=== PATIENT | male | born 1985 | race Caucasian/White ===

== ENCOUNTER 2017-01-04 20:28 | Emergency (ER) | payer BC ==
[~2017-01-04] VITALS: Ht 177.8 cm; Wt 87.7 kg
[~2017-01-04 20:28] MED LIST: ACET-2321 PO; ARIP5TAB12 PO; BISM262O PO; CIPR-212 PO; HYDR-3989 PO; HYDR-4246 PO; MELO7.5T12 PO; METR500T PO; PANT40TA27 PO; SERT25TA5 PO; SUCR1TAB PO
--- OUTSIDE RECORDS SUMMARY | 2017-01-04 20:33 | XMS REPORT ---
Author Author Rashi Harmon [facility] Address [address] [id number] Care Team Providers Care Gravel Machine Operator Name Role Phone Rashi Harmon Unavailable [phone] PROBLEMS Type Condition ICD9-CM Code [id number] Code Onset Dates Condition Status SNOMED Code Problem Ulcerative colitis with complication, unspecified location K51.919 Active 68846694 Problem Bloody diarrhea R19.7 Active [id number] Assessment Ulcerative colitis with complication, unspecified location K51.919 Sep, Active [id number] ALLERGIES Unknown Allergies SOCIAL HISTORY No smoking Hx information available PLAN OF CARE VITAL SIGNS Height 69.5 in 2016-10-11 Weight 213.6 lbs 2016-10-11 Temperature 98.0 degrees Fahrenheit 2016-10-11 Heart Rate 73 /min 2016-10-11 BMI 31.09 kg/m2 2016-10-11 Blood pressure systolic 126 mm Hg 2016-10-11 Blood pressure diastolic 72 mm Hg 2016-10-11 MEDICATIONS Medication Instructions Dosage Frequency Start Date End Date Duration Status Fish Oil 1000 MG Orally Once a day 1 capsule 24h Active Remicade 100 MG Active RESULTS No Results PROCEDURES Procedure Date Ordered Related Diagnosis Body Site Office Visit, Est Pt., Level 1 Oct 11, 2016 INJECTION INFLIXIMAB 10 MG Oct 11, 2016 CHEMO, IV INFUSION, ADDL HR Oct 11, 2016 CHEMO, IV INFUSION, 1 HR Oct 11, 2016 Infusion Normal Saline Solution 250 cc Oct 11, 2016 IMMUNIZATIONS No Known Immunizations
--- OUTSIDE RECORDS SUMMARY | 2017-01-04 20:33 | XMS REPORT ---
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
--- OUTSIDE RECORDS SUMMARY | 2017-01-04 20:33 | XMS REPORT ---
Author Author Amy Springer Organization [employer] Address Unknown Phone Unavailable Care Team Providers Care Transliterator Name Role Phone Amy Springer CP Unavailable Allergies No Known Allergies Problems Problem Type Condition Code Onset Dates Condition Status Problem Umbilical hernia without mention of obstruction or gangrene 553.1 Active Problem Hypercholesterolemia 272.2 Active Problem Other [facility] (current) drug therapy Z79.899 Active Assessment Epigastric pain R10.13 Active Assessment Diarrhea, unspecified R19.7 Active Problem Bipolar disorder, current episode depressed, severe, without psychotic features F31.4 Active Assessment Other intermission coordinator (current) drug therapy Z79.899 Active Medications Medication Code System Code Instructions Start Date End Date Status Dosage Lovastatin [facility] [address]-70 20 MG Orally Once a day January 06, 2015 2 tablet with a meal [place] Carbonate [facility] [address]-90 300 MG PO TID Aug 13, 2014 2 caps Procedures Procedure Coding System Code Date LITHIUM CPT-4 38371 Jul 16, 2015 TSH CPT-4 96350 Jul 16, 2015 SED RATE CPT-4 82200 Jul 16, 2015 LIPID PANEL CPT-4 12418 Jul 16, 2015 COMPREHENSIVE METABOLIC PANEL CPT-4 51160 Jul 16, 2015 HELICOBACTER AB IGG CPT-4 38110 Jul 16, 2015 Results No Known Results Summary Purpose [employer]Clinical[employer] Submission
--- OUTSIDE RECORDS SUMMARY | 2017-01-04 20:33 | XMS REPORT ---
Author Author Vidhya Villatoro [facility] [employer] Address Unknown Phone Unavailable Care Team Providers Care Saw Straightener Name Role Phone Vidhya Villatoro CP Unavailable Allergies No Known Allergies Problems Problem Type Condition ICD-9 Code Onset Dates Condition Status Problem Umbilical hernia without mention of obstruction or gangrene 553.1 Active Problem Bipolar I disorder, most recent episode (or current) depressed, severe , without mention of psychotic behavior 296.53 Active Medications No Known Medications Vital Signs Date/Time: Jul 09, 2014 Height 69.75 inches Weight 202.25 lbs Temperature 97.9 F Blood Pressure Diastolic 80 mm Hg Blood Pressure Systolic 132 mm Hg Cardiac Monitoring Heart Rate 78 Beats per Minute BMI 29.23 Index Respiratory Rate 16 per Minute Results No Known Results Summary Purpose [employer]ClinicalWorks Submission
--- OUTSIDE RECORDS SUMMARY | 2017-01-04 20:33 | XMS REPORT ---
Author Author Sarina Rothman [facility] [employer] Address Unknown Phone Unavailable Care Team Providers Care Electro Tech Name Role Phone Sarina Rothman CP Unavailable Allergies No Known Allergies Problems Problem Type Condition Code Onset Dates Condition Status Problem Other [facility] (current) drug therapy Z79.899 Active Problem Umbilical hernia without mention of obstruction or gangrene 553.1 Active Problem Gastro-esophageal reflux disease without esophagitis K21.9 Active Problem Hypercholesterolemia 272.2 Active Problem Bipolar disorder, current episode depressed, severe, without psychotic features F31.4 Active Medications No Known Medications Results No Known Results Summary Purpose [employer]Clinical[employer] Submission
--- OUTSIDE RECORDS SUMMARY | 2017-01-04 20:33 | XMS REPORT ---
Author Author Vidhya Villatoro [facility] [employer] Address Unknown Phone Unavailable Care Team Providers Care Credit Review Officer Name Role Phone Vidhya Villatoro CP Unavailable Allergies No Known Allergies Problems Problem Type Condition ICD-9 Code Onset Dates Condition Status Problem Umbilical hernia without mention of obstruction or gangrene 553.1 Active Assessment Bipolar I disorder, most recent episode (or current) depressed, severe, without mention of psychotic behavior 296.53 Active Problem Bipolar I disorder, most recent episode (or current) depressed, severe , without mention of psychotic behavior 296.53 Active Medications Medication Code System Code Instructions Start Date End Date Status Dosage [place] Carbonate [facility] [address]-35 300 MG Orally 2 capsules in the morning , and 2 capsules in the evening January 22, 2014 Active as directed Trazodone HCl [facility] [address]-39 100 MG Orally Once a day Jul 09, 2014 Active 1 tablet at bedtime [place] Carbonate [facility] [address]-21 600 MG Orally Twice every day Aug 13, 2014 Active as directed Trihexyphenidyl HCl [facility] [address]-94 5 MG Orally one time a day at bedtime Active 1/2 tablet with meals Procedures Procedure Coding System Code Date OFFICE VISIT, EST-MOD. COMPLEXITY (25 MIN) CPT-4 50145 Aug 13, 2014 Vital Signs Date/Time: Aug 13, 2014 Height 69.75 inches Weight 210.75 lbs Temperature 98.1 F Blood Pressure Diastolic 76 mm Hg Blood Pressure Systolic 126 mm Hg Cardiac Monitoring Heart Rate 84 Beats per Minute BMI 30.45 Index Respiratory Rate 16 per Minute Results No Known Results Summary Purpose [employer]ClinicalWorks Submission
--- OUTSIDE RECORDS SUMMARY | 2017-01-04 20:33 | XMS REPORT ---
Author Jessi Vail Organization [employer] Address Unknown Phone Unavailable Care Team Providers Care Plate Glass Installer Name Role Phone Jessi Eller Unavailable Allergies No Known Allergies Problems Problem Type Condition Code Onset Dates Condition Status Problem Bloody diarrhea R19.7 Active Problem Ulcerative colitis with complication, unspecified location K51.919 Active Medications No Known Medications Results No Known Results Summary Purpose [employer] Submission
--- OUTSIDE RECORDS SUMMARY | 2017-01-04 20:33 | XMS REPORT ---
Author Rashi Ko Organization [employer] Address Unknown Phone Unavailable Care Team Providers Care Auto Parts Manager Name Role Phone Rashi Harmon CP Unavailable Allergies No Known Allergies Problems Problem Type Condition Code Onset Dates Condition Status Problem Bloody diarrhea R19.7 Active Problem Ulcerative colitis with complication, unspecified location K51.919 Active Medications No Known Medications Results No Known Results Summary Purpose [employer]ClinicalWorks Submission
--- OUTSIDE RECORDS SUMMARY | 2017-01-04 20:33 | XMS REPORT ---
Author Author Sarina Rothman [facility] [employer] Address Unknown Phone Unavailable Care Team Providers Care Market Asset Protection Manager Name Role Phone Sarina Rothman CP Unavailable Allergies No Known Allergies Problems Problem Type Condition Code Onset Dates Condition Status Problem Other nursing home (current) drug therapy Z79.899 Active Problem Umbilical hernia without mention of obstruction or gangrene 553.1 Active Problem Gastro-esophageal reflux disease without esophagitis K21.9 Active Problem Hypercholesterolemia 272.2 Active Problem Bipolar disorder, current episode depressed, severe, without psychotic features F31.4 Active Medications No Known Medications Results No Known Results Summary Purpose [employer]ClinicalWorks Submission
--- OUTSIDE RECORDS SUMMARY | 2017-01-04 20:33 | XMS REPORT ---
Author Author Aldo Pretty Organization [employer] Address Unknown Phone Unavailable Care Team Providers Care Hogshead Weigher Name Role Phone Aldo Pretty CP Unavailable Allergies, Adverse Reactions, Alerts Substance Reaction Event Type N.K.D.A. 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 Problem Umbilical hernia without mention of obstruction or gangrene 553.1 Active Problem Gastro-esophageal reflux disease without esophagitis K21.9 Active Assessment Ulcerative colitis, unspecified, without complications K51.90 Active Assessment Generalized abdominal pain R10.84 Active Problem Hypercholesterolemia 272.2 Active Problem Bipolar disorder, current episode depressed, severe, without psychotic features F31.4 Active Medications Medication Code System Code Instructions Start Date End Date Status Dosage Budesonide ER [facility] [address]-85 3 MG Orally Once a day 1 [place] [facility] [address]-67 1000 MG Rectal Once a day 1 suppository at bedtime Hydrocodone-Acetaminophen [facility] [address]-92 5-325 MG Orally every 6 hrs Jul 01, 2016 1-2 tablet as needed for pain Procedures Procedure Coding System Code Date OFFICE VISIT, EST-LOW COMPLEXITY (15 MIN.) CPT-4 59754 Jun 01, 2016 Vital Signs Date/Time: Jun 01, 2016 Temperature 98.4 F Height 69.75 in Weight 212 lbs Blood Pressure Diastolic 60 mm Hg Blood Pressure Systolic 122 mm Hg Cardiac Monitoring Heart Rate 82 /min BMI 30.63 Index Oximetry 95 % Results No Known Results Summary Purpose eClinicalWorks Submission
--- OUTSIDE RECORDS SUMMARY | 2017-01-04 20:33 | XMS REPORT ---
Author Author Sarina Rothman [facility] eClinical[employer] Address Unknown Phone Unavailable Care Team Providers Care Dinkey Engine Mechanic Name Role Phone Sarina Rothman CP Unavailable Allergies No Known Allergies Problems Problem Type Condition Code Onset Dates Condition Status Problem Other [facility] (current) drug therapy Z79.899 Active Problem Umbilical hernia without mention of obstruction or gangrene 553.1 Active Problem Gastro-esophageal reflux disease without esophagitis K21.9 Active Assessment Ulcerative colitis, unspecified with unspecified complications K51.919 Active Problem Hypercholesterolemia 272.2 Active Problem Bipolar disorder, current episode depressed, severe, without psychotic features F31.4 Active Medications Medication Code System Code Instructions Start Date End Date Status Dosage Sertraline HCl [facility] [address]-04 25 MG Orally Once a day December 30, 2015 1 tablet Protonix [facility] [address]-84 40 MG Orally Once a day Jul 16, 2015 1 tablet Abilify [facility] [address]-81 5 MG Orally Once a day March 03, 2016 1 tablet Procedures Procedure Coding System Code Date HEPATITIS PANEL CPT-4 95191 May 24, 2016 QUAUNTIFERON GOLD TB TEST CPT-4 18384 May 24, 2016 Results No Known Results Summary Purpose eClinicalWorks Submission
--- OUTSIDE RECORDS SUMMARY | 2017-01-04 20:33 | XMS REPORT ---
Author Author Sarina Rothman [facility] eClinical[employer] Address Unknown Phone Unavailable Care Team Providers Care Building Equipment Inspector Name Role Phone Sarina Rothman CP Unavailable Allergies No Known Allergies Problems Problem Type Condition Code Onset Dates Condition Status Problem Other snf (current) drug therapy Z79.899 Active Problem Umbilical hernia without mention of obstruction or gangrene 553.1 Active Problem Gastro-esophageal reflux disease without esophagitis K21.9 Active Problem Hypercholesterolemia 272.2 Active Problem Bipolar disorder, current episode depressed, severe, without psychotic features F31.4 Active Medications No Known Medications Results No Known Results Summary Purpose eClinicalWorks Submission
--- OUTSIDE RECORDS SUMMARY | 2017-01-04 20:33 | XMS REPORT ---
Author Author Vidhya Villatoro [facility] eClinical[employer] Address Unknown Phone Unavailable Care Team Providers Care Security Associate Name Role Phone Vidhya Villatoro CP Unavailable [...] Instructions Start Date End Date Status Dosage Trazodone HCl [facility] [address]-35 100 MG Orally Once a day Jul 09, 2014 Active 1 tablet at bedtime [place] Carbonate [facility] [address]-73 300 MG Orally 2 capsules in the morning , and 2 capsules in the evening January 22, 2014 Active as directed Trihexyphenidyl HCl [facility] [address]-37 5 MG Orally one times a day Jul 09, 2014 Active 1 tablet with meals Procedures Procedure Coding System Code Date -ELECTROCARDIOGRAM, COMPLETE CPT-4 24388 Jul 09, 2014 OFFICE VISIT, EST-MOD. COMPLEXITY (25 MIN) CPT-4 24206 Jul 09, 2014 Vital Signs Date/Time: Jul 09, 2014 Height 69.75 inches Weight 202.25 lbs Temperature 97.9 F Blood Pressure Diastolic 80 mm Hg Blood Pressure Systolic 132 mm Hg Cardiac Monitoring Heart Rate 78 Beats per Minute BMI 29.23 Index Respiratory Rate 16 per Minute Results No Known Results Summary Purpose eClinicalWorks Submission
--- OUTSIDE RECORDS SUMMARY | 2017-01-04 20:34 | XMS REPORT ---
Author Author Aldo Pretty Organization [employer] Address Unknown Phone Unavailable Care Team Providers Care Document Design Specialist Name Role Phone Aldo Pretty CP Unavailable Allergies, Adverse Reactions, Alerts Substance Reaction Event Type N.K.D.A. Info Not Available Non Drug Allergy Problems Problem Type Condition Code Onset Dates Condition Status Assessment Gastro-esophageal reflux disease without esophagitis K21.9 Active Problem Other alf (current) drug therapy Z79.899 Active Problem Umbilical hernia without mention of obstruction or gangrene 553.1 Active Problem Gastro-esophageal reflux disease without esophagitis K21.9 Active Assessment Other muscle spasm M62.838 Active Assessment Pain in thoracic spine M54.6 Active Problem Hypercholesterolemia 272.2 Active Problem Bipolar disorder, current episode depressed, severe, without psychotic features F31.4 Active Medications Medication Code System Code Instructions Start Date End Date Status Dosage Protonix [facility] [address]-54 40 MG Orally Once a day Jul 16, 2015 1 tablet Mobic [facility] [address]-79 7.5 MG Orally every 12 hours Apr 12, 2016 1 tablet Sertraline HCl [facility] [address]-85 25 MG Orally Once a day December 30, 2015 1 tablet Sucralfate [facility] [address]-90 1 GM Orally 30 min before meals and bedtime January 12, 2016 May 11, 2016 dissolve 1 tablet in small amount of water and drink Abilify [facility] [address]-26 5 MG Orally Once a day March 03, 2016 1 tablet Procedures Procedure Coding System Code Date OFFICE VISIT, EST-LOW COMPLEXITY (15 MIN.) CPT-4 37944 Apr 12, 2016 Vital Signs Date/Time: Apr 12, 2016 Temperature 98.1 F Height 69.75 in Weight 221.0 lbs Blood Pressure Diastolic 80 mm Hg Blood Pressure Systolic 130 mm Hg Cardiac Monitoring Heart Rate 70 /min BMI 31.93 Index Oximetry 98 % Respiratory Rate 16 /min Results No Known Results Summary Purpose eClinicalWorks Submission
--- OUTSIDE RECORDS SUMMARY | 2017-01-04 20:34 | XMS REPORT | Continuity of Care Document ---
Author Author [facility] Organization [facility] Address Unknown Phone Unavailable Support Name Relationship Address Phone TANA LICEA APRN Caregiver [address] [place] [address] Unavailable CHAUNCEY MIDDLETON MD Caregiver [address] [place] [address] [place] [address] Unavailable BANDAR HUNTLEY Next Of Kin [address] [address] Insurance Providers Guarantor Siddharth Valle Address [address] [address] Email DENIED/NO EMAIL PER PT/NO TO PORTAL Payer [facility] Policy Number [id number] Subscriber's Name Siddharth Valle Relationship 18 Self Group Number [id number] Chief Complaint and Reason for Visit Chief Complaint Abdominal Pain Reason for Visit Inflammatory bowel disease Problems Past Problems Medical Problem Onset Date Colitis Unknown Inflammatory bowel disease Unknown Medications Current Home Medications Medication Dose Units Route Directions Days Qty Instructions Start Date Acetaminophen (Tylenol) 325 Mg Tablet 325-650 Mg Oral Every 4 Hours as needed for Pain 02/05/16 Aripiprazole 5 Mg Tablet 5 Mg Oral Daily 04/26/16 Bismuth Subsalicylate (Kaopectate) 262 Mg/15 Ml Oral.susp 30 Ml Oral As Needed as needed for Prn Orders 04/26/16 Ciprofloxacin Hcl (Cipro) 500 Mg Tablet 500 Mg Oral Three Times A Day 30 Tablet 04/19/16 Hydrocodone/Acetaminophen ([place] 5-325 Tablet) 5-325 Tablet 1-2 Tab Oral Every 6 Hours for Pain 20 Tablet 04/19/16 Hydrocodone/Acetaminophen (Hydrocodon-Acetaminophen 5-325) 5-325 Tablet 1-2 Tab Oral Every 6 Hours as needed for Pain 20 Tablet 04/26/16 Meloxicam (Mobic) 7.5 Mg Tablet 7.5 Mg Oral Daily 04/19/16 Metronidazole (Flagyl) 500 Mg Tablet 500 Mg Oral Q6h/0300,0900,1500,2100 40 Tablet Take 1 tablet, by mouth, every 6 hours. 04/19/16 Pantoprazole Sodium 40 Mg Tablet.dr 40 Mg Oral Before Breakfast Take 1 tablet, by mouth, daily before breakfast. 04/26/16 Sertraline Hcl (Sertraline) 25 Mg Tablet 25 Mg Oral Daily Sucralfate 1 Gm Tablet 1 G Oral Three Times A Day 02/05/16 Social History Social History Problem Response Recorded Date/Time Onset Date Status Hx Substance Use N MARIJUANA: QUIT 201204/26/2016 12:19pm Not Applicable Not Applicable Hx Alcohol Use No 04/26/2016 12:19pm Not Applicable Not Applicable Has the pt used tobacco in the last 12 months No 02/06/2016 7:20am Not Applicable Not Applicable Query Response Start Date Stop Date Smoking Status Unknown if ever smoked Hospital Discharge Instructions No hospital discharge instructions. Plan of Care Discharge Date 04/26/16 1:40pm Disposition 01 DISCHARGED HOME, SELF-CARE Condition at Discharge Stable Instructions/Education Provided Inflammatory Bowel Disease (IBD) (Alternative Therapy) Forms Provided Return to Work/School Permit Prescriptions See Medication Section Referrals JOSE A PRETTY DO Address: [address] [place] [address] [phone] Note: Call today for an appointment later in the week with Dr. Pretty Care Plan and Goals Physician Care Plan Problem: Inflammatory bowel disease Goal: Follow up with primary care provider Instructions: Take medications and follow care plan as discussed/written Functional Status No functional status results. Allergies, Adverse Reactions, Alerts No known allergies. Immunizations Query Response on File Recorded Date/Time Hx Influenza Vaccination Y may 2015 02/06/16 7:20am Hx Pneumococcal Vaccination No 02/06/16 7:20am Hx Tetanus, Diptheria, Pertussis Y 200802/26/12 8:29am Hx Influenza Vaccination Y may 2015 02/06/16 7:20am Hx Tetanus, Diptheria, Pertussis Y 200802/26/12 8:29am Vital Signs Acute Vital Signs Vital Response Date/Time Temperature (Fahrenheit) 98.0 deg F (96.8 - 99.1) 04/26/2016 1:48pm Temperature (Calculated Celsius) 36.36769 degrees C (36.0 - 37.3) 04/26/2016 1:48pm Temperature Source Temporal 02/06/2016 9:22am Pulse Rate (adult) 57 bpm (60 - 100) 04/26/2016 1:48pm Respiratory Rate 20 breaths/min (10 - 20) 04/26/2016 1:48pm O2 Sat by Pulse Oximetry 95 % (90 - 100) 04/26/2016 1:48pm Oxygen Delivery Method Room Air 02/06/2016 10:15am Oxygen Flow Rate 2.00 L/min 02/06/2016 9:30am Blood Pressure 113/59 mm Hg 04/26/2016 1:48pm Blood Pressure Source Automatic Cuff 02/06/2016 10:15am Height (Feet) 5 feet 04/26/2016 10:40am Height (Inches) 10.00 inches 04/26/2016 10:40am Weight (Kilograms) 99.500 kg 04/26/2016 10:40am Body Mass Index (BMI) 31.0 04/26/2016 10:40am Results Laboratory Results Test Name Result Units Flags Reference Collection Date/Time Result Date/ Time Comments Stool Campylobacter PCR NEGATIVE NEGATIVE 04/19/2016 1:57am 2015 4:34am Stool C. difficile Toxin (PCR) NEGATIVE NEGATIVE 04/19/2016 1:57am 4:34am Stool Plesiomonas shigelloides PCR NEGATIVE NEGATIVE 04/19/2016 1: 57am 04/19/2016 4:34am Stool Salmonella PCR NEGATIVE NEGATIVE 04/19/2016 1:57am 04/19/2016 4 :34am Stool Vibrio (PCR) NEGATIVE NEGATIVE 04/19/2016 1:57am 04/19/2016 4: 34am Stool Vibrio cholera (PCR) NEGATIVE NEGATIVE 04/19/2016 1:57am 2015 4:34am Stool Yersinia enterocolitica (PCR) NEGATIVE NEGATIVE 04/19/2016 1: 57am 04/19/2016 4:34am Stool Enteroaggregative E. coli PCR NEGATIVE NEGATIVE 04/19/2016 1: 57am 04/19/2016 4:34am Stool Enteropathogenic E. coli (PCR NEGATIVE NEGATIVE 04/19/2016 1: 57am 04/19/2016 4:34am Stool Enterotoxigenic Ecoli PCR NEGATIVE NEGATIVE 04/19/2016 1:57am 04/19/2016 4:34am Stool E. coli Shiga Toxins NEGATIVE NEGATIVE 04/19/2016 1:57am 2015 4:34am Stool E coli O157 PCR N/A NA/NEG 04/19/2016 1:57am 04/19/2016 4:34am Stool Shigella/EIEC (PCR) NEGATIVE NEGATIVE 04/19/2016 1:57am 2015 4:34am Stool Cryptosporidium PCR NEGATIVE NEGATIVE 04/19/2016 1:57am 2015 4:34am Stool Cyclospora species Detection NEGATIVE NEGATIVE 04/19/2016 1: 57am 04/19/2016 4:34am Stool Entamoeba (PCR) NEGATIVE NEGATIVE 04/19/2016 1:57am 04/19/2016 4:34am Stool Giardia Lamblia PCR NEGATIVE NEGATIVE 04/19/2016 1:57am 2015 4:34am Stool Adenovirus (PCR) NEGATIVE NEGATIVE 04/19/2016 1:57am 2015 4:34am Stool Astrovirus (PCR) NEGATIVE NEGATIVE 04/19/2016 1:57am 2015 4:34am Stool Norovirus GI/GII PCR NEGATIVE NEGATIVE 04/19/2016 1:57am 2015 4:34am Stool Rotavirus A PCR NEGATIVE NEGATIVE 04/19/2016 1:57am 04/19/2016 4:34am Stool Sapovirus (PCR) NEGATIVE NEGATIVE 04/19/2016 1:57am 04/19/2016 4:34am White Blood Count 8.5 T/MM3 4.5-11.0 04/26/2016 11:30am 04/26/2016 11: 46am Red Blood Count 4.51 M/MM3 4.50-5.90 04/26/2016 11:30am 04/26/2016 11: 46am Hemoglobin 13.6 GM/DL 13.5-17.5 04/26/2016 11:30am 04/26/2016 11:46am Hematocrit 40.5 % L 41-53 04/26/2016 11:30am 04/26/2016 11:46am Mean Corpuscular Volume 89.8 UM3 80-100 04/26/2016 11:30am 04/26/2016 11:46am Mean Corpuscular Hemoglobin 30.2 UUG 26-34 04/26/2016 11:30am 2015 11:46am Mean Corpuscular Hemoglobin Concent 33.6 GM/DL 31-37 04/26/2016 11:3004/26/2016 11:46am RDW Standard Deviation 41.1 FL 36.9-50.2 04/26/2016 11:04/26/2016 11:46am Platelet Count 292 T/MM3 130-400 04/26/2016 11:3004/26/2016 11:46am Mean Platelet Volume 8.7 UM3 L 9.4-12.4 04/26/2016 11:3004/26/2016 11 :46am Neutrophils (%) (Auto) 44.3 % 33-66 04/26/2016 11:04/26/2016 11: 46am Lymphocytes (%) (Auto) 23.0 % 23-45 04/26/2016 11:04/26/2016 11: 46am Monocytes (%) (Auto) 10.0 % H 0-9.0 04/26/2016 11:3004/26/2016 11: 46am Eosinophils (%) (Auto) 21.1 % H 0-4 04/26/2016 11:04/26/2016 11: 46am Basophils (%) (Auto) 0.7 % 0-2 04/26/2016 11:04/26/2016 11:46am Immature Granulocyte % (Auto) 0.9 % H 0.0-0.5 04/26/2016 11:2015 11:46am Absolute Neutrophils (auto) 3.8 T/MM3 1.8-7.7 04/26/2016 11:2015 11:46am Absolute Lymphocytes (auto) 2.0 T/MM3 1-4.8 04/26/2016 11:302015 11:46am Absolute Monocytes (auto) 0.9 T/MM3 H 0-0.8 04/26/2016 11:2015 11:46am Absolute Eosinophils (auto) 1.8 T/MM3 H 0-0.5 04/26/2016 11:302015 11:46am Absolute Basophils (auto) 0.1 T/MM3 0-0.2 04/26/2016 11:302015 11:46am Absolute Immature Granulocyte (auto 0.08 T/MM3 H 0.00-0.03 04/26/2016 11: 3004/26/2016 11:46am Icterus Index < 2 0-7 04/26/2016 11:3004/26/2016 12:06pm Chemistry Specimen Hemolysis < 15 0-25 04/26/2016 11:3004/26/2016 12:06pm 0-25: Specimen Exhibited No Hemolysis. Turbidity < 20 0-20 04/26/2016 11:30am 04/26/2016 12:06pm Sodium Level 143 MEQ/L 134-144 04/26/2016 11:3004/26/2016 12:06pm Potassium Level 3.9 MEQ/L 3.6-5 04/26/2016 11:3004/26/2016 12:06pm Chloride Level 109 MEQ/L H 98-107 04/26/2016 11:30am 04/26/2016 12:06pm Carbon Dioxide Level 23 MEQ/L 22-30 04/26/2016 11:30am 04/26/2016 12: 06pm Anion Gap 11 MEQ/L 5-15 04/26/2016 11:3004/26/2016 12:06pm Blood Urea Nitrogen 11.0 MG/DL 9-20 04/26/2016 11:30am 04/26/2016 12: 06pm Creatinine 0.9 MG/DL 0.8-1.5 04/26/2016 11:3004/26/2016 12:06pm BUN/Creatinine Ratio 12 RATIO 6-26 04/26/2016 11:30am 04/26/2016 12: 06pm Glomerular Filtration Rate Calc 98 04/26/2016 11:3004/26/2016 12 :06pm Glucose Level 110 MG/DL 75-110 04/26/2016 11:3004/26/2016 12:06pm Calculated Osmolality 275 MOSM/KG 261-280 04/26/2016 11:302015 12:06pm Calcium Level 9.0 MG/DL 8.4-10.2 04/26/2016 11:3004/26/2016 12:06pm Total Bilirubin 0.40 MG/DL 0.20-1.30 04/26/2016 11:30am 04/26/2016 12: 06pm Alkaline Phosphatase 81 U/L 38-126 04/26/2016 11:30am 04/26/2016 12: 06pm Total Protein 7.4 G/DL 6.3-8.2 04/26/2016 11:30am 04/26/2016 12:06pm Albumin 4.0 G/DL 3.5-5.0 04/26/2016 11:3004/26/2016 12:06pm Globulin 3.4 G/DL 2.4-3.6 04/26/2016 11:30am 04/26/2016 12:06pm Albumin/Globulin Ratio 1.2 RATIO 1.1-2.2 04/26/2016 11:30am 04/26/2016 12:06pm Aspartate Amino Transf (AST/SGOT) 44 U/L 17-59 04/26/2016 11:30am 04/26 12:06pm Alanine Aminotransferase (ALT/SGPT) 49 U/L 21-72 04/26/2016 11:30am 12:06pm C-Reactive Protein < 5.0 MG/L 0-9 04/26/2016 11:30am 04/26/2016 12: 06pm Lipase 96 U/L 23-300 04/26/2016 11:30am 04/26/2016 12:06pm Urine Collection Type VOIDED-NOT CC-MIDSTR 04/26/2016 11:50am 04/26 12:02pm Urine Color YELLOW YELLOW 04/26/2016 11:50am 04/26/2016 12:02pm Urine Turbidity CLEAR CLEAR 04/26/2016 11:50am 04/26/2016 12:02pm Urine Specific Ackley >=1.030 H 1.015-1.025 04/26/2016 11:50am 2015 12:02pm Urine pH 6.0 5.0-8.0 04/26/2016 11:50am 04/26/2016 12:02pm Urine Leukocyte Esterase NEGATIVE NEGATIVE 04/26/2016 11:50am 2015 12:02pm Urine Nitrite NEGATIVE NEGATIVE 04/26/2016 11:50am 04/26/2016 12: 02pm Urine Protein NEGATIVE NEGATIVE 04/26/2016 11:50am 04/26/2016 12: 02pm Urine Glucose (UA) NEGATIVE NEGATIVE 04/26/2016 11:50am 04/26/2016 12 :02pm Urine Ketones TRACE A NEGATIVE 04/26/2016 11:50am 04/26/2016 12:02pm Urine Urobilinogen 0.2 EU/DL NORMAL 04/26/2016 11:50am 04/26/2016 12: 02pm Urine Bilirubin NEGATIVE NEGATIVE 04/26/2016 11:50am 04/26/2016 12: 02pm Urine Blood NEGATIVE NEGATIVE 04/26/2016 11:50am 04/26/2016 12:02pm Urinalysis Comment MICROSCOPIC NOT IND. 04/26/2016 11:50am 2015 12:02pm Procedures Procedure Status Date Provider(s) EGD BIOPSY SINGLE/MULTIPLE Completed 02/06/16 LESTER BUTT MD COLONOSCOPY AND BIOPSY Completed 02/06/16 LESTER BUTT MD CULTURE SCREEN ONLY Completed 02/06/16 PROPOFOL INJ 500 MG/50ML Completed 02/06/16 227851"RINGERS LACTATE INFUSION, UP TO 1000 CC" Completed 02/06/16 Encounters Encounter Location Arrival/Admit Date Discharge/Depart Date Attending Provider Departed Emergency Room [facility] 04/26/16 10:36am 04/26/16 1: 40pm CHAUNCEY MIDDLETON MD Departed Emergency Room [facility] 04/18/16 11:38pm 04/19/16 4: 01am RHIANNON HARMON MD Departed [facility] 02/06/16 6:59am 02/06/16 10 :20am LESTER BUTT MD Recent Diagnosis
--- OUTSIDE RECORDS SUMMARY | 2017-01-04 20:34 | XMS REPORT ---
Author Rashi Ko Organization [employer] Address Unknown Phone Unavailable Care Team Providers Care Weather Strip Installer Name Role Phone Rashi Harmon CP Unavailable Allergies No Known Allergies Problems Problem Type Condition Code Onset Dates Condition Status Problem Bloody diarrhea R19.7 Active Assessment Ulcerative colitis with complication, unspecified location K51.919 Active Problem Ulcerative colitis with complication, unspecified location K51.919 Active Medications No Known Medications Procedures Procedure Coding System Code Date ACUTE HEPATITIS PANEL CPT-4 09025 May 18, 2016 TB TEST, CELL IMMUN MEASURE CPT-4 61927 May 18, 2016 Results No Known Results Summary Purpose [employer] Submission
--- OUTSIDE RECORDS SUMMARY | 2017-01-04 20:34 | XMS REPORT ---
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 Problem Umbilical hernia without mention of obstruction or gangrene 553.1 Active Problem Gastro-esophageal reflux disease without esophagitis K21.9 Active Assessment Generalized abdominal pain R10.84 Active Assessment Diarrhea, unspecified R19.7 Active Problem Hypercholesterolemia 272.2 Active Problem Bipolar disorder, current episode depressed, severe, without psychotic features F31.4 Active Medications Medication Code System Code Instructions Start Date End Date Status Dosage Sertraline HCl [facility] [address]-91 25 MG Orally Once a day December 30, 2015 1 tablet Protonix [facility] [address]-65 40 MG Orally Once a day Jul 16, 2015 1 tablet Hydrocodone-Acetaminophen [facility] [address]-90 5-325 MG Orally every 6 hrs May 11, 2016 1-2 tablet as needed for pain Abilify [facility] [address]-59 5 MG Orally Once a day March 03, 2016 1 tablet Sucralfate [facility] [address]-85 1 GM Orally 30 min before meals and bedtime January 12, 2016 May 11, 2016 dissolve 1 tablet in small amount of water and drink Procedures Procedure Coding System Code Date C DIFFICILE TOXIN CPT-4 51223 Apr 28, 2016 Results Name Result Date Reference Range Unit Abnormality Flag C Difficile Summary Purpose [employer] Submission
--- OUTSIDE RECORDS SUMMARY | 2017-01-04 20:34 | XMS REPORT ---
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
--- OUTSIDE RECORDS SUMMARY | 2017-01-04 20:34 | XMS REPORT ---
Author Jessi V[facility] [employer] Address Unknown Phone Unavailable Care Team Providers Care Irrigator Name Role Phone Jessi Eller Unavailable Allergies, Adverse Reactions, Alerts Substance Reaction Event Type N.K.D.A. Info Not Available Non Drug Allergy Problems Problem Type Condition Code Onset Dates Condition Status Problem Bloody diarrhea R19.7 Active Assessment Colitis K52.9 Active Problem Ulcerative colitis with complication, unspecified location K51.919 Active Medications Medication Code System Code Instructions Start Date End Date Status Dosage Uceris [facility] [address]-13 9 MG Orally not defined Mesalamine [facility] [address]-19 1000 MG Rectal Once a day 1 suppository at bedtime Procedures Procedure Coding System Code Date Office Visit, Est Pt., Level 4 CPT-4 12649 Jun 07, 2016 Vital Signs Date/Time: Jun 07, 2016 Blood Pressure Systolic 122 mm Hg Weight 210 lbs Height 69.5 in BMI 30.56 Index Respiratory Rate 18 /min Cardiac Monitoring Heart Rate 72 /min Blood Pressure Diastolic 78 mm Hg Results No Known Results Summary Purpose [employer] Submission
--- OUTSIDE RECORDS SUMMARY | 2017-01-04 20:34 | XMS REPORT ---
Author Rashi Ko [facility] [employer] Address Unknown Phone Unavailable Care Team Providers Care Nib Adjuster Name Role Phone Rashi Harmon CP Unavailable Allergies No Known Allergies Problems No Known Problems Medications No Known Medications Results No Known Results Summary Purpose [employer] Submission
--- OUTSIDE RECORDS SUMMARY | 2017-01-04 20:34 | XMS REPORT ---
Author Author Rashi Harmon [facility] Address [address] [id number] Care Team Providers Care Taker Down Name Role Phone Rashi Harmon Unavailable [phone] PROBLEMS Type Condition ICD9-CM Code UAB96-GQ Code Onset Dates Condition Status SNOMED Code Problem Clostridium difficile infection B96.89 Active 801294577 Problem Ulcerative colitis with complication, unspecified location K51.919 Active 65863888 Problem Bloody diarrhea R19.7 Active 83050437 Assessment Clostridium difficile infection B96.89 Oct, Active 361389132 ALLERGIES Unknown Allergies SOCIAL HISTORY No smoking Hx information available PLAN OF CARE VITAL SIGNS MEDICATIONS Medication Instructions Dosage Frequency Start Date End Date Duration Status Dicyclomine HCl 10 MG Orally tid abdominal cramping prn 1 capsule Apr 30 day(s) Active Remicade 100 MG Active Fish Oil 1000 MG Orally Once a day 1 capsule 24h Active Flagyl 500 MG Orally every 8 hrs 1 tablet 8h Oct, 10 day(s) Active RESULTS No Results PROCEDURES No Known procedures IMMUNIZATIONS No Known Immunizations
--- OUTSIDE RECORDS SUMMARY | 2017-01-04 20:34 | XMS REPORT ---
Author Kevin Fox Organization [employer] Address Unknown Phone Unavailable Care Team Providers Care [place] Applier Name Role Phone Kevin Crum CP Unavailable Allergies No Known Allergies Problems Problem Type Condition Code Onset Dates Condition Status Problem Bloody diarrhea R19.7 Active Problem Ulcerative colitis with complication, unspecified location K51.919 Active Medications No Known Medications Results No Known Results Summary Purpose [employer] Submission
--- OUTSIDE RECORDS SUMMARY | 2017-01-04 20:34 | XMS REPORT ---
Author Jessi Vail Organization [employer] Address Unknown Phone Unavailable Care Team Providers Care Engraver Automatic Name Role Phone Jessi Eller Unavailable Allergies No Known Allergies Problems Problem Type Condition Code Onset Dates Condition Status Problem Bloody diarrhea R19.7 Active Problem Ulcerative colitis with complication, unspecified location K51.919 Active Medications No Known Medications Results No Known Results Summary Purpose [employer] Submission
--- OUTSIDE RECORDS SUMMARY | 2017-01-04 20:34 | XMS REPORT ---
Author Author Vidhya Villatoro [facility] [employer] Address Unknown Phone Unavailable Care Team Providers Care Safety Technician Name Role Phone Vidhya Villatoro CP Unavailable [...] Medications No Known Medications Vital Signs Date/Time: May 14, 2014 Height 69.75 inches Weight 204 lbs Temperature 98.0 F Blood Pressure Diastolic 78 mm Hg Blood Pressure Systolic 102 mm Hg Cardiac Monitoring Heart Rate 80 Beats per Minute BMI 29.48 Index Respiratory Rate 16 per Minute Results No Known Results Summary Purpose [employer] Submission
--- OUTSIDE RECORDS SUMMARY | 2017-01-04 20:34 | XMS REPORT ---
Author Author Sarina Rothman [facility] [employer] Address Unknown Phone Unavailable Care Team Providers Care Folded Cloth Taper Name Role Phone Sarina Rothman CP Unavailable Allergies No Known Allergies Problems Problem Type Condition Code Onset Dates Condition Status Problem Other senior care (current) drug therapy Z79.899 Active Problem Umbilical hernia without mention of obstruction or gangrene 553.1 Active Problem Gastro-esophageal reflux disease without esophagitis K21.9 Active Problem Hypercholesterolemia 272.2 Active Problem Bipolar disorder, current episode depressed, severe, without psychotic features F31.4 Active Medications No Known Medications Results No Known Results Summary Purpose [employer] Submission
--- OUTSIDE RECORDS SUMMARY | 2017-01-04 20:34 | XMS REPORT ---
Author Author Vidhya Villatoro [facility] [employer] Address Unknown Phone Unavailable Care Team Providers Care Fire Fighter Name Role Phone Vidhya Villatoro CP Unavailable [...]
--- OUTSIDE RECORDS SUMMARY | 2017-01-04 20:34 | XMS REPORT ---
Author Rashi Ko [facility] [employer] Address Unknown Phone Unavailable Care Team Providers Care Commercial Counsel Name Role Phone Rashi Harmon Unavailable Allergies No Known Allergies Problems Problem Type Condition Code Onset Dates Condition Status Problem Bloody diarrhea R19.7 Active Assessment Ulcerative colitis with complication, unspecified location K51.919 Active Problem Ulcerative colitis with complication, unspecified location K51.919 Active Medications Medication Code System Code Instructions Start Date End Date Status Dosage Uceris [facility] [address]-99 9 MG Orally not defined Mesalamine [facility] [address]-30 1000 MG Rectal Once a day 1 suppository at bedtime Procedures Procedure Coding System Code Date COMPREHEN METABOLIC PANEL CPT-4 75728 Jun 17, 2016 Office Visit, Est Pt., Level 1 CPT-4 99717 Jun 17, 2016 COMPLETE BLOOD COUNT W/AUTO DIFF CPT-4 51974 Jun 17, 2016 CHEMO, IV INFUSION, 1 HR CPT-4 03493 Jun 17, 2016 INJECTION INFLIXIMAB 10 MG CPT-4 J1745 Jun 17, 2016 Infusion Normal Saline Solution 250 cc CPT-4 J7050 Jun 17, 2016 CHEMO, IV INFUSION, ADDL HR CPT-4 84587 Jun 17, 2016 Vital Signs Date/Time: Jun 17, 2016 Temperature 97.6 F Weight 212.4 lbs Height 69.5 in BMI 30.91 Index Cardiac Monitoring Heart Rate 69 /min Blood Pressure Diastolic 76 mm Hg Blood Pressure Systolic 120 mm Hg Results Name Result Date Reference Range Unit Abnormality Flag COMPREHENSIVE METABOLIC PANEL (CMP) 44188 ----ALBUMIN/GLOBULIN RATIO 1.1 [id number] 1.0-2.5 (calc) N ----GLOBULIN 4.1 81762053 1.9-3.7 g/dL (calc) H ----ALKALINE PHOSPHATASE 93 01952539 40-115 U/L N ----BILIRUBIN, TOTAL 0.6 23799508 0.2-1.2 mg/dL N ----CHLORIDE 103 42612107 98-110 mmol/L N ----ALT 29 69745664 9-46 U/L N ----POTASSIUM 3.7 14161335 3.5-5.3 mmol/L N ----AST 24 91928624 10-40 U/L N ----SODIUM 138 43883671 135-146 mmol/L N ----BUN/CREATININE RATIO NOT APPLICABLE 04493219 6-22 (calc) ----eGFR 135 59534057 > OR=60 mL/min/1.73m2 N ----CALCIUM 9.5 91418858 8.6-10.3 mg/dL N ----CARBON DIOXIDE 24 16726802 20-31 mmol/L N ----ALBUMIN 4.4 97082209 3.6-5.1 g/dL N ----PROTEIN, TOTAL 8.5 11761260 6.1-8.1 g/dL H ----GLUCOSE 99 12918513 65-99 mg/dL N ----UREA NITROGEN (BUN) 16 78130959 7-25 mg/dL N ----CREATININE 0.83 06630922 0.60-1.35 mg/dL N ----eGFR NON-AFR. MACEDONIAN 116 94163515 > OR=60 mL/min/1.73m2 N CBC (INCLUDES DIFF/PLT) 74515 ----MCHC 33.0 95101010 32.0-36.0 g/dL N ----MCH 30.1 15569896 27.0-33.0 pg N ----PLATELET COUNT 274 71149314 140-400 Thousand/uL N ----RDW 13.6 63886074 11.0-15.0 % N ----BASOPHILS 0.6 32205833 % N ----ABSOLUTE NEUTROPHILS 3465 58350935 2331-2303 cells/uL N ----ABSOLUTE LYMPHOCYTES 2786 53983794 850-3900 cells/uL N ----MPV 7.7 52099352 7.5-11.5 fL N ----ABSOLUTE BASOPHILS 42 48537074 0-200 cells/uL N ----HEMATOCRIT 40.7 52163807 38.5-50.0 % N ----NEUTROPHILS 49.5 72179072 % N ----MCV 91.2 19167464 80.0-100.0 fL N ----RED BLOOD CELL COUNT 4.46 11303417 4.20-5.80 Million/uL N ----ABSOLUTE MONOCYTES 546 57981591 200-950 cells/uL N ----ABSOLUTE EOSINOPHILS 161 31742580 15-500 cells/uL N ----HEMOGLOBIN 13.4 14147825 13.2-17.1 g/dL N ----EOSINOPHILS 2.3 64036785 % N ----WHITE BLOOD CELL COUNT 7.0 99368202 3.8-10.8 Thousand/uL N ----LYMPHOCYTES 39.8 30678700 % N ----MONOCYTES 7.8 02699647 % N Summary Purpose [employer]ClinicalWorks Submission
--- OUTSIDE RECORDS SUMMARY | 2017-01-04 20:34 | XMS REPORT ---
Author Author Aldo Pretty Organization [employer] Address Unknown Phone Unavailable Care Team Providers Care Plate Straightener Name Role Phone Aldo Pretty CP Unavailable Allergies, Adverse Reactions, Alerts Substance Reaction Event Type N.K.D.A. 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 Problem Umbilical hernia without mention of obstruction or gangrene 553.1 Active Problem Gastro-esophageal reflux disease without esophagitis K21.9 Active Assessment Generalized abdominal pain R10.84 Active Assessment Diarrhea, unspecified R19.7 Active Problem Hypercholesterolemia 272.2 Active Problem Bipolar disorder, current episode depressed, severe, without psychotic features F31.4 Active Medications Medication Code System Code Instructions Start Date End Date Status Dosage Hydrocodone-Acetaminophen [facility] [address]-95 5-325 MG Orally every 6 hrs May 11, 2016 1-2 tablet as needed for pain Sucralfate [facility] [address]-50 1 GM Orally 30 min before meals and bedtime January 12, 2016 May 11, 2016 dissolve 1 tablet in small amount of water and drink Abilify [facility] [address]-00 5 MG Orally Once a day March 03, 2016 1 tablet Sertraline HCl [facility] [address]-70 25 MG Orally Once a day December 30, 2015 1 tablet Protonix [facility] [address]-85 40 MG Orally Once a day Jul 16, 2015 1 tablet Procedures Procedure Coding System Code Date OFFICE VISIT, EST-LOW COMPLEXITY (15 MIN.) CPT-4 43855 Apr 27, 2016 Vital Signs Date/Time: Apr 27, 2016 Temperature 97.2 F Height 69.75 in Weight 214.8 lbs Blood Pressure Diastolic 84 mm Hg Blood Pressure Systolic 122 mm Hg Cardiac Monitoring Heart Rate 72 /min BMI 31.04 Index Oximetry 98 % Respiratory Rate 16 /min Results No Known Results Summary Purpose eClinicalWorks Submission
--- OUTSIDE RECORDS SUMMARY | 2017-01-04 20:34 | XMS REPORT ---
Author Author Sarina Rothman [facility] eClinical[employer] Address Unknown Phone Unavailable Care Team Providers Care Application Lead Name Role Phone Sarina Rothman Unavailable Allergies No Known Allergies Problems Problem Type Condition Code Onset Dates Condition Status Problem Umbilical hernia without mention of obstruction or gangrene 553.1 Active Problem Bipolar I disorder, most recent episode (or current) depressed, severe , without mention of psychotic behavior 296.53 Active Medications Medication Code System Code Instructions Start Date End Date Status Dosage [place] Carbonate [facility] [address]-66 300 MG Orally. Take 600 mg in the morning and evening, 300 mg once in the afternoon once in the afternoon Jul [address] [facility] [address]-94 20 MG Orally Once a day January 06, 2015 1 tablet with a meal Results No Known Results Summary Purpose eClinicalWorks Submission
--- OUTSIDE RECORDS SUMMARY | 2017-01-04 20:34 | XMS REPORT ---
Author Author Sarina Rothman [facility] eClinical[employer] Address Unknown Phone Unavailable Care Team Providers Care Machine Operator Hay Stacker Name Role Phone Sarina Rothman Unavailable Allergies No Known Allergies Problems Problem Type Condition ICD-9 Code Onset Dates Condition Status Problem Umbilical hernia without mention of obstruction or gangrene 553.1 Active Problem Hypercholesterolemia 272.2 Active Problem Bipolar I disorder, most recent episode (or current) depressed, severe , without mention of psychotic behavior 296.53 Active Assessment Hypercholesterolemia 272.2 Active Assessment Bipolar I disorder, most recent episode (or current) depressed, severe, without mention of psychotic behavior 296.53 Active Medications Medication Code System Code Instructions Start Date End Date Status Dosage Lovastatin [facility] [address]-43 20 MG Orally Once a day January 06, 2015 1 tablet with a meal [place] Carbonate [facility] [address]-25 300 MG Orally. Take 600 mg in the morning and evening, 300 mg once in the afternoon once in the afternoon Jul 1 capsule Procedures Procedure Coding System Code Date LIPID PANEL CPT-4 89427 Apr 09, 2015 LITHIUM CPT-4 67799 Apr 09, 2015 Results No Known Results Summary Purpose [employer]ClinicalWorks Submission
--- OUTSIDE RECORDS SUMMARY | 2017-01-04 20:34 | XMS REPORT ---
Author Author Amy Springer Organization [employer] Address Unknown Phone Unavailable Care Team Providers Care Escalator Constructor Name Role Phone Amy Springer CP Unavailable Allergies, Adverse Reactions, Alerts Substance Reaction Event Type N.K.D.A. Info Not Available Non Drug Allergy Problems Problem Type Condition Code Onset Dates Condition Status Problem Umbilical hernia without mention of obstruction or gangrene 553.1 Active Problem Hypercholesterolemia 272.2 Active Problem Other terminal carman (current) drug therapy Z79.899 Active Problem Bipolar disorder, current episode depressed, severe, without psychotic features F31.4 Active Assessment Bipolar disorder, current episode depressed, severe, without psychotic features F31.4 Active Medications Medication Code System Code Instructions Start Date End Date Status Dosage Lovastatin [facility] [address]-11 20 MG Orally Once a day January 06, 2015 2 tablet with a meal Sertraline HCl [facility] [address]-87 25 MG Orally Once a day December 30, 2015 1 tablet Protonix [facility] [address]-79 40 MG Orally Once a day Jul 16, 2015 1 tablet Procedures Procedure Coding System Code Date OFFICE VISIT, EST-MOD. COMPLEXITY (25 MIN) CPT-4 43681 December 30, 2015 Vital Signs Date/Time: December 30, 2015 Temperature 99.0 F Height 69.75 in Weight 223.4 lbs Blood Pressure Diastolic 72 mm Hg Blood Pressure Systolic 126 mm Hg Cardiac Monitoring Heart Rate 88 /min BMI 32.28 Index Respiratory Rate 16 /min Results No Known Results Summary Purpose [employer]ClinicalWorks Submission
--- OUTSIDE RECORDS SUMMARY | 2017-01-04 20:34 | XMS REPORT ---
Author Author Sarina Rothman [facility] eClinical[employer] Address Unknown Phone Unavailable Care Team Providers Care Mill Tender Name Role Phone Sarina Rothman CP Unavailable Allergies No Known Allergies Problems Problem Type Condition Code Onset Dates Condition Status Problem Umbilical hernia without mention of obstruction or gangrene 553.1 Active Problem Hypercholesterolemia 272.2 Active Problem Other skilled nursing (current) drug therapy Z79.899 Active Problem Bipolar disorder, current episode depressed, severe, without psychotic features F31.4 Active Medications No Known Medications Results No Known Results Summary Purpose eClinicalWorks Submission
--- OUTSIDE RECORDS SUMMARY | 2017-01-04 20:34 | XMS REPORT ---
Author Author Rashi Harmon [facility] Address [address] [id number] Care Team Providers Care Route Contractor Name Role Phone Faustino Rashi Unavailable [phone] PROBLEMS Type Condition ICD9-CM Code [id number] Code Onset Dates Condition Status SNOMED Code Problem Immunosuppression D89.9 Active 14199860 Problem Clostridium difficile infection B96.89 Active 460710498 Problem Ulcerative colitis with complication, unspecified location K51.919 Active 60353231 Problem Bloody diarrhea R19.7 Active 34111775 ALLERGIES Unknown Allergies SOCIAL HISTORY No smoking Hx information available PLAN OF CARE VITAL SIGNS MEDICATIONS Unknown Medications RESULTS No Results PROCEDURES No Known procedures IMMUNIZATIONS No Known Immunizations
--- OUTSIDE RECORDS SUMMARY | 2017-01-04 20:35 | XMS REPORT ---
Author Author Sarina Rothman Organization [employer] Address Unknown Phone Unavailable Care Team Providers Care Local Operator Name Role Phone Sarina Rothman CP Unavailable [...] mention of psychotic behavior 296.53 Active Assessment Diarrhea 787.91 Active Assessment Abdominal pain, epigastric 789.06 Active Medications Medication Code System Code Instructions Start Date End Date Status Dosage [place] Carbonate [facility] [address]-66 600 MG Orally Twice every day Aug 13, 2014 1 capsule Procedures Procedure Coding System Code Date COMPLETE CBC W/AUTO DIFF WBC CPT-4 50771 December 31, 2014 HELICOBACTER AB IGG CPT-4 46224 December 31, 2014 C DIFFICILE TOXIN CPT-4 81799 December 31, 2014 IH LIPID PANEL CPT-4 44048 December 31, 2014 OVA AND PARASITES EXAM CPT-4 45138 December 31, 2014 TSH WITH REFLEX T4 CPT-4 84278 December 31, 2014 IH CMP CPT-4 56641 December 31, 2014 LITHIUM CPT-4 00912 December 31, 2014 Results No Known Results Summary Purpose eClinicalWorks Submission
--- OUTSIDE RECORDS SUMMARY | 2017-01-04 20:35 | XMS REPORT ---
Author Kevin Fox Organization [employer] Address Unknown Phone Unavailable Care Team Providers Care Sap Hana Developer Name Role Phone Kevin Crum CP Unavailable Allergies No Known Allergies Problems Problem Type Condition Code Onset Dates Condition Status Problem Bloody diarrhea R19.7 Active Problem Ulcerative colitis with complication, unspecified location K51.919 Active Medications No Known Medications Results No Known Results Summary Purpose eClinicalWorks Submission
--- OUTSIDE RECORDS SUMMARY | 2017-01-04 20:35 | XMS REPORT ---
Author Author Sarina Rothman [facility] eClinicalWorks Address Unknown Phone Unavailable Care Team Providers Care Cigarette Seller Name Role Phone Sarina Rothman CP Unavailable [...] mention of psychotic behavior 296.53 Active Assessment Mood disorder in conditions classified elsewhere 293.83 Active Medications Medication Code System Code Instructions Start Date End Date Status Dosage [place] Carbonate [facility] [address]-10 300 MG Orally 2 capsules in the morning , and 1 capsule in the evening January 22, 2014 Active as directed Procedures Procedure Coding System Code Date LITHIUM CPT-4 17905 Jun 14, 2014 Vital Signs Date/Time: May 14, 2014 Height 69.75 inches Weight 204 lbs Temperature 98.0 F Blood Pressure Diastolic 78 mm Hg Blood Pressure Systolic 102 mm Hg Cardiac Monitoring Heart Rate 80 Beats per Minute BMI 29.48 Index Respiratory Rate 16 per Minute Results Name Result Date Reference Range Unit [place] Summary Purpose eClinicalWorks Submission
--- OUTSIDE RECORDS SUMMARY | 2017-01-04 20:35 | XMS REPORT ---
Author Author Sarina Rothman [facility] eClinicalWorks Address Unknown Phone Unavailable Care Team Providers Care Building Trades Teacher Name Role Phone Sarina Rothman CP Unavailable Allergies, Adverse Reactions, Alerts Substance [...] Instructions Start Date End Date Status Dosage [place] Carbonate [facility] [address]-30 600 MG Orally Twice every day Aug 13, 2014 1 capsule Procedures Procedure Coding System Code Date OFFICE VISIT, EST-LOW COMPLEXITY (15 MIN.) CPT-4 16139 December 25, 2014 Results No Known Results Summary Purpose eClinicalWorks Submission
--- OUTSIDE RECORDS SUMMARY | 2017-01-04 20:35 | XMS REPORT ---
Author Author JazzRashi marquez [facility] Address [address] [id number] Care Team Providers Care Business Continuity Planning Director Name Role Phone Rashi Harmon Unavailable [phone] PROBLEMS Type Condition ICD9-CM Code [id number] Code Onset Dates Condition Status SNOMED Code Problem Ulcerative colitis with complication, unspecified location K51.919 Active 10339125 Problem Bloody diarrhea R19.7 Active 74211563 Assessment Bloody diarrhea R19.7 Oct, Active 44869679 Assessment Abdominal pain R10.9 Oct, Active 12922706 ALLERGIES Unknown Allergies SOCIAL HISTORY No smoking Hx information available PLAN OF CARE Activity Details Pending Test CLOSTRIDIUM DIFFICILE TOXIN/GDH W/REFL TO PCR 32770 ,Reason: VITAL SIGNS MEDICATIONS Medication Instructions Dosage Frequency Start Date End Date Duration Status Dicyclomine HCl 10 MG Orally tid abdominal cramping prn 1 capsule Apr 30 day(s) Active RESULTS No Results PROCEDURES Procedure Date Ordered Related Diagnosis Body Site CLOSTRIDIUM AG, EIA November 10, 2016 AG DETECT NOS, EIA, MULT November 10, 2016 IMMUNIZATIONS No Known Immunizations
--- OUTSIDE RECORDS SUMMARY | 2017-01-04 20:35 | XMS REPORT ---
Author Author Amy Springer Organization [employer] Address Unknown Phone Unavailable Care Team Providers Care Senior Web Architect Name Role Phone Amy Springer CP Unavailable Allergies, Adverse Reactions, Alerts Substance Reaction Event Type N.K.D.A. 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 COMPLEXITY (25 MIN) CPT-4 42016 Jul 15, 2015 Vital Signs Date/Time: Jul 15, 2015 Height 69.75 in Weight 228.4 lbs Temperature 97.9 F Blood Pressure Diastolic 78 mm Hg Blood Pressure Systolic 122 mm Hg Cardiac Monitoring Heart Rate 80 /min BMI 33.00 Index Respiratory Rate 18 /min Results No Known Results Summary Purpose eClinicalWorks Submission
--- OUTSIDE RECORDS SUMMARY | 2017-01-04 20:35 | XMS REPORT ---
Author Sarina Solis [facility] eClinicalWorks Address Unknown Phone Unavailable Care Team Providers Care Mosaic Tiler Name Role Phone Sarina Rothman CP Unavailable Allergies, Adverse Reactions, Alerts Substance Reaction Event Type N.K.D.A. Info Not Available Non Drug Allergy Problems Problem Type Condition Code Onset Dates Condition Status Assessment Nausea R11.0 Active Assessment Dysuria R30.0 Active Assessment Epigastric pain R10.13 Active Assessment Peptic ulcer, site unspecified, unspecified as acute or chronic, without hemorrhage or perforation K27.9 Active Problem Umbilical hernia without mention of obstruction or gangrene 553.1 Active Problem Hypercholesterolemia 272.2 Active Problem Other custodial (current) drug therapy Z79.899 Active Assessment Bipolar disorder, current episode depressed, severe, without psychotic features F31.4 Active Assessment Diarrhea, unspecified R19.7 Active Problem Bipolar disorder, current episode depressed, severe, without psychotic features F31.4 Active Assessment 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 Follow up in 2-4 weeks Jul 16, 2015 1 tablet for 2 weeks then 2 tabs daily. Carafate [facility] [address]-56 1 GM Orally 30 min before meals and bedtime Jul 16, 2015 November 13, 2015 1 tablet Protonix [facility] [address]-21 40 MG Orally Once a day Jul 16, 2015 1 tablet Lovastatin [facility] [address]-04 20 MG Orally Once a day January 06, 2015 2 tablet with a meal Ciprofloxacin HCl [facility] [address]-58 500 MG Orally every 12 hrs Jul 17, 2015 Jul 24, 2015 1 tablet Procedures Procedure Coding System Code Date OFFICE VISIT, EST-MOD. COMPLEXITY (25 MIN) CPT-4 30117 Jul 16, 2015 HEMOSURE iFOB SCREENING, IN HOUSE CPT-4 76522 Jul 16, 2015 Vital Signs Date/Time: Jul 16, 2015 Height 69.75 in Weight 228.8 lbs Temperature 98.4 F Blood Pressure Diastolic 81 mm Hg Blood Pressure Systolic 121 mm Hg Cardiac Monitoring Heart Rate 85 /min BMI 33.06 Index Respiratory Rate 16 /min Results No Known Results Summary Purpose eClinicalWorks Submission
--- OUTSIDE RECORDS SUMMARY | 2017-01-04 20:35 | XMS REPORT ---
Author Author JazzRashi marquez [facility] Address [address] [id number] Care Team Providers Care Clinical Exercise Physiologist Name Role Phone Rashi Harmon Unavailable [phone] PROBLEMS Type Condition ICD9-CM Code ATU10-UA Code Onset Dates Condition Status SNOMED Code Problem Clostridium difficile infection B96.89 Active 621145074 Problem Ulcerative colitis with complication, unspecified location K51.919 Active 28736613 Problem Bloody diarrhea R19.7 Active 75203784 Assessment Clostridium difficile infection B96.89 Nov, Active 137887552 ALLERGIES Unknown Allergies SOCIAL HISTORY No smoking Hx information available PLAN OF CARE Activity Details Pending Test CLOSTRIDIUM DIFFICILE TOXIN/GDH W/REFL TO PCR 55076 ,Reason: VITAL SIGNS MEDICATIONS Unknown Medications RESULTS No Results PROCEDURES Procedure Date Ordered Related Diagnosis Body Site CLOSTRIDIUM AG, EIA November 30, 2016 AG DETECT NOS, EIA, MULT November 30, 2016 IMMUNIZATIONS No Known Immunizations
--- OUTSIDE RECORDS SUMMARY | 2017-01-04 20:35 | XMS REPORT | Continuity of Care Document ---
Author Author [facility] Organization [facility] Address Unknown Phone Unavailable Support Name Relationship Address Phone TANA LICEA APRN Caregiver [address] [place] [address] Unavailable LESTER VICKERS MD Caregiver [address] [place] [address] [place] [address] Unavailable BANDAR HUNTLEY Next Of Kin [address] [address] Insurance Providers Guarantor Siddharth Valle Address [address] [address] Email DENIED/NO EMAIL PER PT Payer [facility] Policy Number [id number] Subscriber's Name Siddharth Valle Relationship 18 Self Group Number [id number] Advance Directives Directive Response Recorded Date/Time Ordered Resuscitation Status Full Code 02/05/16 11:26am Resuscitation Documents on File No 02/06/16 7:24am DPOA for Healthcare Only No 02/06/16 7:24am Problems No problem information available. Medications Current Home Medications Medication Dose Units Route Directions Days Qty Instructions Start Date Acetaminophen (Tylenol) 325 Mg Tablet 1-2 Tab Oral As Needed 60 Tablet 02/05/16 Lovastatin 20 Mg Tablet 20 Mg Oral Bedtime Take one tablet,by mouth , one time a day (at bedtime). 02/05/16 Pantoprazole Sodium (Protonix) 40 Mg Tablet.dr 40 Mg Oral Before Breakfast for Acid Reflux 30 Days 30 Tablet Take 1 tablet, by mouth, one time a day before breakfast. 02/06/16 Sertraline Hcl (Sertraline) 25 Mg Tablet 25 Mg Oral Daily Sucralfate 1 Gm Tablet 1 Tab Oral Three Times A Day 90 Tablet 02/04 Social History Social History Problem Response Recorded Date/Time Onset Date Status Chewing Tobacco Status No 02/06/2016 7:20am Not Applicable Not Applicable Hx Substance Use N MARIJUANA: QUIT 201202/06/2016 7:20am Not Applicable Not Applicable Hx Alcohol Use No 02/06/2016 7:20am Not Applicable Not Applicable Has the pt used tobacco in the last 12 months No 02/06/2016 7:20am Not Applicable Not Applicable Query Response Start Date Stop Date Smoking Status Former smoker Hospital Discharge Instructions Instructions: Care Instructions: Reason for Hospitalization: colonoscopy/ egd I was in the hospital because (patient own words): to have a scope Discharge Diet: High fiber diet with a fiber supplement such as Metamucil or Benefiber. Discharge Activity: Resume your normal activity as tolerated. Follow Up Appointments: No follow-up appointment necessary. You will be contacted by phone in approximately 1-2 weeks with your biopsy results. Pending Lab / Results: Will be notified Patient Instructions: Do not drive, operate machinery, drink alcohol, or sign important papers for 24 hours or while taking pain medications. Notify Physician If: Call Dr. Vickers if you develop a temperature >101 degrees, severe abdominal pain, or severe rectal bleeding. Condition at time of discharge: Good Plan of Care Discharge Date 02/06/16 10:20am Prescriptions See Medication Section Functional Status No functional status results. Allergies, [...] Vital Signs Vital Response Date/Time Temperature (Fahrenheit) 96.9 deg F (96.8 - 99.1) 02/06/2016 9:22am Temperature (Calculated Celsius) 36.05614 degrees C (36.0 - 37.3) 02/06/2016 9:22am Temperature Source Temporal 02/06/2016 9:22am Pulse Rate (adult) 64 bpm (60 - 100) 02/06/2016 10:15am Respiratory Rate 16 breaths/min (10 - 20) 02/06/2016 10:15am O2 Sat by Pulse Oximetry 97 % (90 - 100) 02/06/2016 10:15am Oxygen Delivery Method Room Air 02/06/2016 10:15am Oxygen Flow Rate 2.00 L/min 02/06/2016 9:30am Blood Pressure 138/62 mm Hg 02/06/2016 10:15am Blood Pressure Source Automatic Cuff 02/06/2016 10:15am Height (Feet) 5 feet 02/06/2016 7:00am Height (Inches) 10.00 inches 02/06/2016 7:00am Weight (Kilograms) 98.800 kg 02/06/2016 7:00am Body Mass Index (BMI) 31.3 02/06/2016 7:00am Results No known relevant diagnostic tests, laboratory data and/or discharge summary. Procedures Procedure Status Date Provider(s) Esophagogastroduodenoscopy (EGD) with closed biopsy Completed 02/06/16 LESTER VICKERS MD Colonoscopy Completed 02/06/16 LESTER VICKERS MD Encounters Encounter Location Arrival/Admit Date Discharge/Depart Date Attending Provider Departed [facility] 02/06/16 6:59am 02/06/16 10 :20am LESTER VICKERS MD
--- OUTSIDE RECORDS SUMMARY | 2017-01-04 20:35 | XMS REPORT ---
Author Author Sarina Rothman [facility] eClinicalWorks Address Unknown Phone Unavailable Care Team Providers Care Nutritionist Public Health Name Role Phone Sarina Rothman CP Unavailable Allergies No Known Allergies Problems Problem Type Condition Code Onset Dates Condition Status Problem Other fpc (current) drug therapy Z79.899 Active Problem Umbilical hernia without mention of obstruction or gangrene 553.1 Active Problem Gastro-esophageal reflux disease without esophagitis K21.9 Active Problem Hypercholesterolemia 272.2 Active Problem Bipolar disorder, current episode depressed, severe, without psychotic features F31.4 Active Medications No Known Medications Results No Known Results Summary Purpose eClinicalWorks Submission
--- OUTSIDE RECORDS SUMMARY | 2017-01-04 20:35 | XMS REPORT ---
Author Author Sarina Rothman [facility] eClinicalWorks Address Unknown Phone Unavailable Care Team Providers Care Program Control Analyst Name Role Phone Sarina Rothman CP Unavailable Allergies, Adverse Reactions, Alerts Substance Reaction Event Type N.K.D.A. Info Not Available Non Drug Allergy Problems Problem Type Condition ICD-9 Code Onset Dates Condition Status Problem Umbilical hernia without mention of obstruction or gangrene 553.1 Active Problem Hypercholesterolemia 272.2 Active Problem Bipolar I disorder, most recent episode (or current) depressed, severe , without mention of psychotic behavior 296.53 Active Assessment Diarrhea 787.91 Active Assessment Acute sinusitis, unspecified 461.9 Active Assessment Bipolar I disorder, most recent episode (or current) depressed, severe, without mention of psychotic behavior 296.53 Active Assessment Hypercholesterolemia 272.2 Active Medications Medication Code System Code Instructions Start Date End Date Status Dosage Whiteash Carbonate [facility] [place] [address]-53 300 MG PO TID Aug 13, 2014 2 caps Lovastatin [facility] [place] [address]-17 20 MG Orally Once a day January 06, 2015 2 tablet with a meal Amoxicillin [facility] [place] [address]-23 500 MG Orally TID Apr 21, 2015 May 01, 2015 1 capsule Procedures Procedure Coding System Code Date TSH CPT-4 97704 Apr 21, 2015 HEMOGLOBIN A1C, IN HOUSE CPT-4 88405 Apr 21, 2015 COMPREHENSIVE METABOLIC PANEL CPT-4 76938 Apr 21, 2015 OFFICE VISIT, EST-LOW COMPLEXITY (15 MIN.) CPT-4 55144 Apr 21, 2015 Vital Signs Date/Time: Apr 21, 2015 Height 69.75 in Weight 224.25 lbs Temperature 97.6 F Blood Pressure Diastolic 78 mm Hg Blood Pressure Systolic 118 mm Hg Cardiac Monitoring Heart Rate 80 /min BMI 32.40 Index Respiratory Rate 20 /min Results No Known Results Summary Purpose eClinicalWorks Submission
--- OUTSIDE RECORDS SUMMARY | 2017-01-04 20:35 | XMS REPORT ---
Author Author Sarina Rothman [facility] eClinicalWorks Address Unknown Phone Unavailable Care Team Providers Care Smog Technician Name Role Phone Sarina Rothman CP Unavailable Allergies No Known Allergies Problems Problem Type Condition Code Onset Dates Condition Status Problem Other penitentiary (current) drug therapy Z79.899 Active Problem Umbilical hernia without mention of obstruction or gangrene 553.1 Active Problem Gastro-esophageal reflux disease without esophagitis K21.9 Active Problem Hypercholesterolemia 272.2 Active Problem Bipolar disorder, current episode depressed, severe, without psychotic features F31.4 Active Medications No Known Medications Results No Known Results Summary Purpose eClinicalWorks Submission
--- OUTSIDE RECORDS SUMMARY | 2017-01-04 20:35 | XMS REPORT ---
Author Rashi Ko Organization eClinicalWorks Address Unknown Phone Unavailable Care Team Providers Care Tractor Sweeper Driver Name Role Phone Rashi Harmon CP Unavailable Allergies No Known Allergies Problems Problem Type Condition Code Onset Dates Condition Status Problem Bloody diarrhea R19.7 Active Problem Ulcerative colitis with complication, unspecified location K51.919 Active Medications No Known Medications Results No Known Results Summary Purpose eClinicalWorks Submission
--- OUTSIDE RECORDS SUMMARY | 2017-01-04 20:35 | XMS REPORT ---
Author Author Aldo Pretty Organization eClinicalWorks Address Unknown Phone Unavailable Care Team Providers Care Pipe Caulker Name Role Phone Aldo Pretty CP Unavailable Allergies No Known Allergies Problems Problem Type Condition Code Onset Dates Condition Status Problem Other long term care social worker (current) drug therapy Z79.899 Active Problem Umbilical hernia without mention of obstruction or gangrene 553.1 Active Problem Gastro-esophageal reflux disease without esophagitis K21.9 Active Assessment Generalized abdominal pain R10.84 Active Assessment Diarrhea, unspecified R19.7 Active Problem Hypercholesterolemia 272.2 Active Problem Bipolar disorder, current episode depressed, severe, without psychotic features F31.4 Active Medications Medication Code System Code Instructions Start Date End Date Status Dosage Sucralfate [facility] [address]-46 1 GM Orally 30 min before meals and bedtime January 12, 2016 May 11, 2016 dissolve 1 tablet in small amount of water and drink Hydrocodone-Acetaminophen [facility] [address]-83 5-325 MG Orally every 6 hrs May 11, 2016 1-2 tablet as needed for pain Abilify [facility] [address]-22 5 MG Orally Once a day March 03, 2016 1 tablet Sertraline HCl [facility] [address]-97 25 MG Orally Once a day December 30, 2015 1 tablet Protonix [facility] [address]-64 40 MG Orally Once a day Jul 16, 2015 1 tablet Procedures Procedure Coding System Code Date STOOL CULTURE- STOOL CULTURE W/ SHIGA TOXIN CPT-4 86897 Apr 30, 2016 OVA AND PARASITES EXAM CPT-4 79763 Apr 30, 2016 SHIGA TOXIN-STOOL CULTURE W/ SHIGA TOXIN CPT-4 12728 Apr 30, 2016 Results Name Result Date Reference Range Unit Abnormality Flag Stool Culture with Shiga toxin ----Stool Culture with Shiga toxin Source: Stool Collected: 04/30/16 09:12 [id number] Ova and Parasite Exam Summary Purpose eClinicalWorks Submission
--- OUTSIDE RECORDS SUMMARY | 2017-01-04 20:35 | XMS REPORT ---
Author Author Rashi Harmon [facility] Address [address] [id number] Care Team Providers Care Scrub Tech Name Role Phone Rashi Harmon Unavailable [phone] PROBLEMS Type Condition ICD9-CM Code [id number] Code Onset Dates Condition Status SNOMED Code Problem Ulcerative colitis with complication, unspecified location K51.919 Active 77363017 Problem Bloody diarrhea R19.7 Active 12550424 Assessment Ulcerative colitis with complication, unspecified location K51.919 Jul, Active 09424039 ALLERGIES Unknown Allergies SOCIAL HISTORY No smoking Hx information available PLAN OF CARE VITAL SIGNS Height 69.5 in 2016-08-09 Weight 218 lbs 2016-08-09 Temperature 97.9 degrees Fahrenheit 2016-08-09 Heart Rate 79 /min 2016-08-09 BMI 31.73 kg/m2 2016-08-09 Blood pressure systolic 121 mm Hg 2016-08-09 Blood pressure diastolic 79 mm Hg 2016-08-09 MEDICATIONS Medication Instructions Dosage Frequency Start Date End Date Duration Status Multivitamins - Orally daily 24h Active Fish Oil 1000 MG Orally Once a day 1 capsule 24h Active Vitamin C 1000 MG Orally Once a day 1 tablet 24h Active Remicade 100 MG Active Uceris 9 MG Active RESULTS No Results PROCEDURES Procedure Date Ordered Related Diagnosis Body Site COMPLETE BLOOD COUNT W/AUTO DIFF Aug 09, 2016 COMPREHEN METABOLIC PANEL Aug 09, 2016 Infusion Normal Saline Solution 250 cc Aug 09, 2016 INJECTION INFLIXIMAB 10 MG Aug 09, 2016 Office Visit, Est Pt., Level 1 Aug 09, 2016 CHEMO, IV INFUSION, ADDL HR Aug 09, 2016 CHEMO, IV INFUSION, 1 HR Aug 09, 2016 IMMUNIZATIONS No Known Immunizations
--- OUTSIDE RECORDS SUMMARY | 2017-01-04 20:35 | XMS REPORT ---
Author Author Sarina Rothman [facility] eClinicalWorks Address Unknown Phone Unavailable Care Team Providers Care Contract Attorney Name Role Phone Sarina Rothman CP Unavailable Allergies No Known Allergies Problems Problem Type Condition Code Onset Dates Condition Status Problem Other custodial (current) drug therapy Z79.899 Active Problem Umbilical hernia without mention of obstruction or gangrene 553.1 Active Problem Gastro-esophageal reflux disease without esophagitis K21.9 Active Assessment Gastro-esophageal reflux disease without esophagitis K21.9 Active Assessment Colitis K52.9 Active Problem Hypercholesterolemia 272.2 Active Problem Bipolar disorder, current episode depressed, severe, without psychotic features F31.4 Active Medications Medication Code System Code Instructions Start Date End Date Status Dosage Sucralfate [facility] [address]-76 1 GM Orally 30 min before meals and bedtime January 12, 2016 May 11, 2016 dissolve 1 tablet in small amount of water and drink Abilify [facility] [address]-49 5 MG Orally Once a day March 03, 2016 1 tablet Hydrocodone-Acetaminophen [facility] [address]-94 5-325 MG Orally up to 3 times a day Apr 30, 2016 1-2 tablet as needed Sertraline HCl [facility] [address]-90 25 MG Orally Once a day December 30, 2015 1 tablet Protonix [facility] [address]-01 40 MG Orally Once a day Jul 16, 2015 1 tablet Procedures Procedure Coding System Code Date SED RATE CPT-4 76008 Apr 20, 2016 COMPLETE CBC W/AUTO DIFF WBC CPT-4 78846 Apr 20, 2016 Results No Known Results Summary Purpose eClinicalWorks Submission
--- OUTSIDE RECORDS SUMMARY | 2017-01-04 20:35 | XMS REPORT ---
Author Author Rashi Harmon [facility] Address [address] [id number] Care Team Providers Care Gas Fitter Apprentice Name Role Phone Rashi Harmon Unavailable [phone] PROBLEMS Type Condition ICD9-CM Code [id number] Code Onset Dates Condition Status SNOMED Code Problem Clostridium difficile infection B96.89 Active 964540323 Problem Ulcerative colitis with complication, unspecified location K51.919 Active 21669972 Problem Bloody diarrhea R19.7 Active 86198286 Assessment Clostridium difficile infection B96.89 Oct, Active [id number] ALLERGIES Unknown Allergies SOCIAL HISTORY No smoking Hx information available PLAN OF CARE Activity Details Pending Test COMPREHENSIVE METABOLIC PANEL (CMP) 48778 Pending Test CBC (INCLUDES DIFF/PLT) 14748 Pending Test INFLIXIMAB CONCENTRATION AND ANTI-INFLIXIMAB ANTIBODY (REMICADE) 97012 [id number] ,Reason: VITAL SIGNS MEDICATIONS Medication Instructions Dosage Frequency Start Date End Date Duration Status Vancomycin HCl 250 MG Orally every 6 hrs 2 capsules 6h Oct, 14 days Active Remicade 100 MG Active Fish Oil 1000 MG Orally Once a day 1 capsule 24h Active Dicyclomine HCl 10 MG Orally tid abdominal cramping prn 1 capsule Apr 30 day(s) Active Flagyl 500 MG Orally every 8 hrs 1 tablet 8h Oct, 10 day(s) Active RESULTS No Results PROCEDURES Procedure Date Ordered Related Diagnosis Body Site COMPLETE BLOOD COUNT W/AUTO DIFF November 22, 2016 COMPREHEN METABOLIC PANEL November 22, 2016 CHEMILUMINESCENT ASSAY November 22, 2016 QUANTITATIVE ASSAY, DRUG November 22, 2016 IMMUNIZATIONS No Known Immunizations
--- OUTSIDE RECORDS SUMMARY | 2017-01-04 20:35 | XMS REPORT ---
Author Author Sarina Rothman Organization eClinicalWorks Address Unknown Phone Unavailable Care Team Providers Care Invoicing Specialist Name Role Phone Sarina Rothman CP Unavailable Allergies, Adverse Reactions, Alerts Substance Reaction Event Type N.K.D.A. Info Not Available Non Drug Allergy Problems Problem Type Condition Code Onset Dates Condition Status Problem Other intermediate (current) drug therapy Z79.899 Active Problem Umbilical [...] Start Date End Date Status Dosage Sucralfate [facility] [address]-04 1 GM Orally 30 min before meals and bedtime January 12, 2016 May 11, 2016 dissolve 1 tablet in small amount of water and drink Abilify [facility] [address]-99 5 MG Orally Once a day March 03, 2016 1 tablet Hydrocodone-Acetaminophen [facility] [address]-88 5-325 MG Orally up to 3 times a day Apr 30, 2016 1-2 tablet as needed Sertraline HCl [facility] [address]-66 25 MG Orally Once a day December 30, 2015 1 tablet Protonix [facility] [address]-64 40 MG Orally Once a day Jul 16, 2015 1 tablet Procedures Procedure Coding System Code Date OFFICE VISIT, EST-LOW COMPLEXITY (15 MIN.) CPT-4 14603 Apr 20, 2016 Vital Signs Date/Time: Apr 20, 2016 Temperature 98.1 F Height 69.75 in Weight 222.8 lbs Blood Pressure Diastolic 62 mm Hg Blood Pressure Systolic 112 mm Hg Cardiac Monitoring Heart Rate 64 /min BMI 32.19 Index Oximetry 97 % Results No Known Results Summary Purpose eClinicalWorks Submission
--- OUTSIDE RECORDS SUMMARY | 2017-01-04 20:35 | XMS REPORT ---
Author Jessi Vail Organization eClinicalWorks Address Unknown Phone Unavailable Care Team Providers Care Lumber Sorter Name Role Phone Jessi Eller Unavailable Allergies, Adverse Reactions, Alerts Substance Reaction Event Type N.K.D.A. Info Not Available Non Drug Allergy Problems Problem Type Condition Code Onset Dates Condition Status Assessment Bloody diarrhea R19.7 Active Assessment Abdominal pain R10.9 Active Problem Bloody diarrhea R19.7 Active Medications Medication Code System Code Instructions Start Date End Date Status Dosage Suprep Bowel Prep [facility] [address]-69 1 Pack Orally take as directed Apr take as directed Ciprofloxacin [facility] [address]-86 500 MG Orally Once a day 1 tablet Pantoprazole Sodium [facility] [address]-48 40 MG Orally Once a day 1 tablet Hydrocodone-Acetaminophen [facility] [address]-70 5-325 MG Orally every 6 hrs 1 tablet as needed Lovastatin [facility] [address]-11 20 MG Orally Once a day 1 tablet with a meal Aripiprazole [facility] [address]-00 5 MG Orally Once a day 1 tablet Metronidazole [facility] [address]-09 500 MG Orally every 8 hrs 1 tablet Sucralfate [facility] [address]-02 1 GM Orally Twice a day 1 tablet on an empty stomach Dicyclomine HCl [facility] [address]-17 10 MG Orally tid abdominal cramping prn Apr 30, 2016 1 capsule Sertraline HCl [facility] [address]-16 25 MG Orally Once a day 1 tablet Procedures Procedure Coding System Code Date Office Visit, New Pt., Level 4 CPT-4 31524 Apr 30, 2016 Vital Signs Date/Time: Apr 30, 2016 Blood Pressure Systolic 114 mm Hg Weight 215 lbs Height 69.5 in BMI 31.29 Index Respiratory Rate 16 /min Cardiac Monitoring Heart Rate 78 /min Blood Pressure Diastolic 66 mm Hg Results No Known Results Summary Purpose eClinicalWorks Submission
--- OUTSIDE RECORDS SUMMARY | 2017-01-04 20:35 | XMS REPORT ---
Author Author Amy Springer Organization eClinicalWorks Address Unknown Phone Unavailable Care Team Providers Care Test Analyst Name Role Phone Amy Springer CP Unavailable Allergies No Known Allergies Problems Problem Type Condition Code Onset Dates Condition Status Problem Umbilical hernia without mention of obstruction or gangrene 553.1 Active Problem Hypercholesterolemia 272.2 Active Problem Other [facility] (current) drug therapy Z79.899 Active Problem Bipolar disorder, current episode depressed, severe, without psychotic features F31.4 Active Medications Medication Code System Code Instructions Start Date End Date Status Dosage Sertraline HCl [facility] [address]-56 25 MG Orally Once a day December 30, [address] [facility] [address]-09 5 MG Orally Once a day March 03, 2016 1 tablet Results No Known Results Summary Purpose eClinicalWorks Submission
--- OUTSIDE RECORDS SUMMARY | 2017-01-04 20:35 | XMS REPORT ---
Author Author Sarina Rothman [facility] eClinicalWorks Address Unknown Phone Unavailable Care Team Providers Care Lumber Stacker Driver Name Role Phone Sarina Rothman CP Unavailable Allergies No Known Allergies Problems Problem Type Condition ICD-9 Code Onset Dates Condition Status Problem Umbilical hernia without mention of obstruction or gangrene 553.1 Active Problem Hypercholesterolemia 272.2 Active Problem Bipolar I disorder, most recent episode (or current) depressed, severe , without mention of psychotic behavior 296.53 Active Medications No Known Medications Results No Known Results Summary Purpose eClinicalWorks Submission
[2017-01-04 21:00] VITALS: Ht 177.8 cm; Wt 87.7 kg
--- NOTE | 2017-01-04 21:45 | NUR ---
PROVIDER René HERERRA MOPHEAD SEWER IN TO SEE PATIENT.
[2017-01-04] MEDS ORDERED: MORPHINE SULFATE 4 MG SYRINGE IV ONE (22:00)
[2017-01-04] MEDS ORDERED: ONDANSETRON 4mg/2ml INJECTION IV ONE (22:00)
[2017-01-04] MEDS ORDERED: NORMAL SALINE 1,000 ML IV ONE (22:00)
--- NOTE | 2017-01-04 22:01 | ERPDOC ---
Departure Disposition Decision Date: January 05, 2017 Disposition Decision Time: 00:06 Disposition: 01 DISCHARGED HOME, SELF-CARE Impression Impression Impression: Primary Impression: Abdominal pain Abdominal location: generalized Qualified Codes: R10.84 - Generalized abdominal pain Additional Impressions: Bloody diarrhea Fever Fever type: unspecified Qualified Codes: R50.9 - Fever, unspecified Severity: Moderate Condition: Stable Seen By: Mid-level only Referrals: TANA LICEA APRN (Family) Patient Instructions: Abdominal Pain (ED) Problems/Meds/Labs Reviewed?: Yes Medications reviewed and manag: Yes Additional Instructions: Monitor your fever, pain, and bloody stools at home. Return to Er with persistent fever, severe abdominal pain, or increased bloody stools as we will need to recheck your labs. If you are doing ok tomorrow then I do want you to follow up with your GI specialist or your PCP. Take the Acme as needed for pain and the Zofran as needed for nausea. Follow up care ordered?: Yes Mental Status: Alert Scripts Hydrocodone/Acetaminophen (Acme 5-325 Tablet) 5-325 Tablet 1 TAB PO Q6H Y for PAIN, #12 TAB 0 Refills Prov: BRYAN HERRERA APRN 01/05/17 Ondansetron (Zofran Odt) 4 Mg Tab.rapdis 4 MG PO Q8HR, #12 TAB 0 Refills Orally disintegrating tablet Prov: BRYAN HERRERA APRN 01/05/17 HPI - Abdominal Pain General Chief Complaint: Abdominal Pain Stated Complaint: FEVER,RECTAL BLEEDING Time Seen by Provider: 21:49 Source: patient History/Exam Limitations: no limitations HPI - Abdominal Pain Initial Comments He has a history of UC and for the last few weeks has been having an increase in bloody stools. He does see a GI specialist and he has spoken with him. Does get Remicade infusions. He was also diagnosed with C Diff and was treated with antibiotics but the bleeding has not subsided. Today he went to work and had a bloody stool. Then started to have a headache and back ache. He took some Tylenol but then does not recall the rest of the day. Did take his temp when he got home and it was 102. He has had nausea but no vomiting. Has had some generalized abdominal pain. Occurred At: home Onset: Gradual Duration: 12-24 hrs Quality: sharpness Location: generalized abdomen Radiation: no radiation Associated Symptoms: fatigue, fever/chills (up to 102 at home), headache, nausea/vomiting (nausea, no vomiting), DENIES: back pain, chest pain, diaphoresis, heartburn, rash, shortness of breath, swelling/mass in abdomen, syncope, weakness Hx of Similar Symptoms: No Allergies: Coded Allergies: No Known Allergies (Unverified , 01/05/17) Past History Past Medical History GI: GERD, IBS, ulcerative colitis Psychological: bipolar Surgical History General: colonoscopy Family History Family History: Negative Vaccines Hx Influenza Vaccination: Yes (may 2015) Hx Pneumococcal Vaccination: No Hx Tetanus, Diptheria, Pertuss: Yes (2008) Social History Smoking Status: Never smoker Does patient use chewing tobac: No Substance Use Type: does not use Alcohol Intake: none Review of Systems Constitutional Constitutional: chills, fatigue, fever, weakness, DENIES: dizziness Eyes Vision: DENIES: blurring, double vision Cardiovascular Cardiac: DENIES: chest pain, orthopnea Rhythm/Rate: DENIES: irregular beat, palpitations Pulmonary Respiratory: DENIES: cough, dyspnea, sputum, tachypnea GI Upper Abdomen: nausea, pain, DENIES: vomiting Lower Abdomen: blood in stool, diarrhea, pain, DENIES: constipation Integumentary Skin: DENIES: rash Neurological General: DENIES: headache, numbness, tingling, weakness Physical Exam General General Nourishment: well nourished, well developed, appears stated age, no acute distress, adult General Body Habitus: well groomed Vitals and Pain First Documented Vital Signs Date Time Temp Pulse Resp B/P Pulse Ox O2 Delivery O2 Flow Rate FiO2 01/04/17 21:00 100.3 108 16 106/67 96 Room Air Weight: Kilograms: 87.700 Height (feet): 5 Height (inches): 10.00 Triage Pain Scale: RN VS reviewed by Provider: Yes Normal Exams: Neck: Full range of motion, without adenopathy, JVD, bruits or thyromegaly Chest/Resp: Clear all manzo, with good airflow, and symmetry bilaterally CV: Regular rate and rhythm, without murmur or gallop, Pulses 2+ all extremities, capillary refill, <2 seconds all ext., no pedal edema noted Abdomen: Bowel sounds positive, soft, non-tender, non-distended, no hepatosplenomegaly, masses or bruits noted Lymphatic: No lymphadenopathy, or lymphedema noted Integumentary: No rashes, hives, or bruising noted Neurologic: Patient is alert, and oriented Psychiatric: Patient exhibits, appropriate attention, emotion and affect Differential Diagnoses Considering: Appendicitis, Bowel Obstruction, Crohn's, Diverticulitis, Gastroenteritis, GI Bleed, Ulcerative Colitis Progress Results/Orders Orders Lab Results Medications Current ED Medications Sodium Chloride (Normal Saline IV) 1,000 ml @ 1,000 mls/hr Q1H ONCE IV Last administered on 01/04/17 22:14; Start 01/04/17 at 22:00; Stop 01/04/17 at 22:59; Status DC Ondansetron HCl (Zofran) 4 mg O ONCE IV Last administered on 01/04/17 22:14; Start 01/04/17 at 22:00; Stop 01/04/17 at 22:01; Status DC Morphine Sulfate (Morphine) 4 mg O ONCE IV Last administered on 01/04/17 22:14 ; Start 01/04/17 at 22:00; Stop 01/04/17 at 22:01; Status DC Iohexol 1 bottle 1 bottle STK-MED ONCE .ROUTE ; Start 01/04/17 at 23:05; Stop 01/04/17 at 23:06; Status DC Sodium Chloride (NS) 100 ml @ As Directed STK-MED ONCE .ROUTE ; Start 01/04/17 at 23:05; Stop 01/04/17 at 23:06; Status DC Sodium Chloride (Iv Flush) 10 ml STK-MED ONCE .ROUTE ; Start 01/04/17 at 23:05; Stop 01/04/17 at 23:06; Status DC Ketorolac Tromethamine (Toradol) 30 mg O ONCE IV Last administered on 23:58; Start 01/04/17 at 23:30; Stop 01/04/17 at 23:31; Status DC Acetaminophen/ Hydrocodone Bitart (NORCO 5 (PrePack)) 1 pack O ONCE SENT HOME Last administered on 01/05/17 00:43; Start 01/05/17 at 00:15; Stop 01/05/17 at 00:16; Status DC Ondansetron HCl (ZOFRAN ODT (PrePack)) 1 pack O ONCE SENT HOME Last administered on 01/05/17t 00:43; Start 01/05/17 at 00:15; Stop 01/05/17 at 00:16 ; Status DC Progress Progress WBC is 5.4 without a left shift. CMP is normal. Hgb is stable at 13.1. Ct of abdomen shows inflammatory changes consistent with ulcerative colitis but otherwise normal. Will go ahead and let him go home today. Rx given for Acme and Zofran. Will have him follow up with his GI specialist or PCP this week for reevaluation or return to ER with severe pain or increase in amount of bloody stools. CT CT : Reason for Exam: abdominal pain, fever CT: Abd/Pelvis IV contrast Interpretation: Abnormal (Inflammatory changes consistent with UC.) BRYAN HERRERA APRN January 04, 2017 22:01 Ketorolac (Toradol) PHA 01/04/17 Complete 23:30 Lab Results Laboratory Tests Test 01/04/17 22:10 White Blood Count 5.4T/MM3 Red Blood Count 4.26M/MM3 Hemoglobin 13.1GM/DL Hematocrit 37.9% Mean Corpuscular Volume 89.0UM3 Mean Corpuscular Hemoglobin 30.8UUG Mean Corpuscular Hemoglobin Concent 34.6GM/DL RDW Standard Deviation 38.9FL Platelet Count 271T/MM3 Mean Platelet Volume 8.4UM3 Immature Granulocyte % (Auto) 0.2% Neutrophils (%) (Auto) 66.0% Lymphocytes (%) (Auto) 23.3% Monocytes (%) (Auto) 10.1% Eosinophils (%) (Auto) 0.2% Basophils (%) (Auto) 0.2% Absolute Immature Granulocyte (auto 0.01T/MM3 Absolute Neutrophils (auto) 3.6T/MM3 Absolute Lymphocytes (auto) 1.3T/MM3 Absolute Monocytes (auto) 0.6T/MM3 Absolute Eosinophils (auto) 0.0T/MM3 Absolute Basophils (auto) 0.0T/MM3 Turbidity < 20 Sodium Level 142MEQ/L Potassium Level 3.5MEQ/L Chloride Level 105MEQ/L Carbon Dioxide Level 22MEQ/L Anion Gap 15MEQ/L Blood Urea Nitrogen 10.0MG/DL Creatinine 0.9MG/DL Glomerular Filtration Rate Calc 97 BUN/Creatinine Ratio 11RATIO Glucose Level 129MG/DL Calculated Osmolality 274MOSM/KG Calcium Level 9.2MG/DL Total Bilirubin 0.70MG/DL Icterus Index < 2 Aspartate Amino Transf (AST/SGOT) 28U/L Alanine Aminotransferase (ALT/SGPT) 38U/L Alkaline Phosphatase 61U/L Total Protein 7.7G/DL Albumin 4.1G/DL Globulin 3.6G/DL Albumin/Globulin Ratio 1.1RATIO Chemistry Specimen Hemolysis < 15 Medications Current ED Medications Sodium Chloride (Normal Saline IV) 1,000 ml @ 1,000 mls/hr Q1H ONCE IV Last administered on 01/04/17 22:14; Start 01/04/17 at 22:00; Stop 01/04/17 at 22:59; Status DC Ondansetron HCl (Zofran) 4 mg O ONCE IV Last administered on 01/04/17 22:14; Start 01/04/17 at 22:00; Stop 01/04/17 at 22:01; Status DC Morphine Sulfate (Morphine) 4 mg O ONCE IV Last administered on 01/04/17 22:14 ; Start 01/04/17 at 22:00; Stop 01/04/17 at 22:01; Status DC Iohexol 1 bottle 1 bottle STK-MED ONCE .ROUTE ; Start 01/04/17 at 23:05; Stop 01/04/17 at 23:06; Status DC Sodium Chloride (NS) 100 ml @ As Directed STK-MED ONCE .ROUTE ; Start 01/04/17 at 23:05; Stop 01/04/17 at 23:06; Status DC Sodium Chloride (Iv Flush) 10 ml STK-MED ONCE .ROUTE ; Start 01/04/17 at 23:05; Stop 01/04/17 at 23:06; Status DC Ketorolac Tromethamine (Toradol) 30 mg O ONCE IV Last administered on 23:58; Start 01/04/17 at 23:30; Stop 01/04/17 at 23:31; Status DC BRYAN HERRERA APRN January 04, 2017 22:01
[2017-01-04 22:18] LABS: BASOPHILS % (AUTO) 0.2 % (0-2); EOSINOPHILS % (AUTO) 0.2 % (0-4); HCT - HEMATOCRIT 37.9 % (41-53); HGB - HEMOGLOBIN 13.1 GM/DL (13.5-17.5); IMMATURE GRANULOCYTE # (AUTO) 0.01 T/MM3 (0.00-0.03); IMMATURE GRANULOCYTE % (AUTO) 0.2 % (0.0-0.5); LYMPHOCYTES # (AUTO) 1.3 T/MM3 (1-4.8); LYMPHOCYTES % (AUTO) 23.3 % (23-45); MEAN CORPUSCULAR HGB 30.8 UUG (26-34); MEAN CORPUSCULAR HGB CONC(MCHC 34.6 GM/DL (31-37); MEAN PLATELET VOLUME 8.4 UM3 (9.4-12.4); MONOCYTES # (AUTO) 0.6 T/MM3 (0-0.8); MONOCYTES % (AUTO) 10.1 % (0-9.0); NEUTROPHILS #(AUTO)-ABSOLUTE 3.6 T/MM3 (1.8-7.7); RED BLOOD COUNT 4.26 M/MM3 (4.50-5.90); WBC - WHITE BLOOD COUNT 5.4 T/MM3 (4.5-11.0)
[2017-01-04 22:23] LABS: ALBUMIN 4.1 G/DL (3.5-5.0); ALBUMIN/GLOBULIN RATIO 1.1 RATIO (1.1-2.2); ALKALINE PHOSPHATASE 61 U/L (38-126); ALT (SGPT) 38 U/L (21-72); ANION GAP 15 MEQ/L (5-15); AST (SGOT) 28 U/L (17-59); BUN/CREATININE RATIO 11 RATIO (6-26); CALCIUM 9.2 MG/DL (8.4-10.2); CHLORIDE 105 MEQ/L (98-107); CO2 - CARBON DIOXIDE 22 MEQ/L (22-30); CREATININE 0.9 MG/DL (0.8-1.5); GLOMERULAR FILTRATION RATE 97; GLUCOSE 129 MG/DL (75-110); POTASSIUM 3.5 MEQ/L (3.6-5); SODIUM 142 MEQ/L (134-144); TOTAL PROTEIN 7.7 G/DL (6.3-8.2)
[2017-01-04] MEDS ORDERED: SALINE FLUSH 10ml SYRINGE ONE (23:05)
[2017-01-04] MEDS ORDERED: NORMAL SALINE 100 ML ONE (23:05)
[2017-01-04] MEDS ORDERED: IOHEXOL 300 MG/ML 100ml INJECTION ONE (23:05)
[2017-01-04] MEDS ORDERED: MESA10005 RECTALLY (23:10)
[2017-01-04] MEDS ORDERED: LAMO100T12 PO (23:10)
[2017-01-04] MEDS ORDERED: BUDE9TAB PO (23:10)
--- NOTE | 2017-01-04 23:18 | NUR ---
REPORT GIVEN TO DAPHNEY SANCHEZ. CARE ASSUMED.
--- NOTE | 2017-01-04 23:21 | NUR ---
CT PT TAKEN TO CT PER CART
--- NOTE | 2017-01-04 23:29 | NUR ---
ROOM PT RETURNED TO ROOM [address]
[2017-01-04] MEDS ORDERED: KETOROLAC 30mg/ml INJECTION IV ONE (23:30)
--- NOTE | 2017-01-04 23:37 | NUR ---
IV FLUID #1 IV NS INFUSED IV SITE WITHOUT REDNESS OR SWELLING
--- NOTE | 2017-01-04 23:58 | NUR ---
TORADOL IV TORADOL GIVEN FOR C/O HEADACHE PT ALSO REPORTS ALOT OF TENSION IN HIS NECK
[2017-01-05] MEDS ORDERED: HYDR-4246 PO (00:08)
[2017-01-05] MEDS ORDERED: ONDA4TAB7 PO (00:08)
[2017-01-05] MEDS ORDERED: HYDROCODONE/APAP 5/325 (PrePack) SENT HOME ONE (00:15)
[2017-01-05] MEDS ORDERED: ONDANSETRON ODT 4mg #3 (PrePack) SENT HOME ONE (00:15)
--- NOTE | 2017-01-05 00:31 | NUR ---
STATUS PT REPORTS HE FEELS ALOT BETTER RATES HIS HURST/NECK PAIN / ALSO REPORTS HIS STOMACH FEELS FINE
--- NOTE | 2017-01-05 00:38 | NUR ---
IVL IVL DC'D WITH CATH INTACT DRSG APPLIED TO IV SITE
--- NOTE | 2017-01-05 00:43 | NUR ---
INSTRUCTIONS DISMISSAL AND MEDICATION INSTRUCTIONS GIVEN TO PT DISP PREPACKS OF NORCO AND ZOFRAN ODT WITH INSTRUCTIONS 2RX GIVEN FOR ZOFRAN AND NORCO ALSO WORK NOTE PROVIDED PT VERBALIZED UNDERSTANDING OF ALL
[2017-01-05 00:46] VITALS: BP 106/53; PULSE 82; RESP 14; TEMP 100.1; O2SAT 94
--- NOTE | 2017-01-05 00:46 | NUR ---
DISMISS PT DISMISSED AMBULATORY FAMILY COMING TO GET HIM
--- NOTE | 2017-01-05 09:26 | DI ---
Indication: ITS.REASON: abdominal pain history of ulcerative colitis with rectal bleeding, nausea and chills. PROCEDURE: CT ABD/PELVIS W/CONTRAST ONLY: Encounter: Initial Comparison: 04/19/2016 Technique: Axial CT images were performed through the abdomen and pelvis after the administration of intravenous contrast. Coronal and sagittal two-dimensional reformats. Contrast: Omnipaque 300 100 mL Findings: Lung bases: Mild dependent atelectasis. Liver: Unremarkable with no mass lesions or hepatomegaly. Spleen: Unremarkable. Gallbladder: Unremarkable. Pancreas: Unremarkable and homogeneous. Adrenal glands: Unremarkable. Kidneys: Unremarkable with no hydronephrosis or mass lesions. Aorta: Unremarkable with no aneurysmal change. Lymph nodes: Unremarkable. Stomach and bowel loops: Stomach is not distended. Small bowel loops show no air-fluid levels or distention. Appendix is not enlarged. Mild mucosal thickening throughout descending colon and sigmoid compatible mild inflammatory change with minimal stranding of surrounding mesentery. No evidence of free fluid or free air. Prominent stool is seen throughout the right and transverse colon. CT pelvis: Urinary bladder: Unremarkable with no wall abdomen or intraluminal calcifications. Prostate: Unremarkable. Osseous structures: Unremarkable. Impression: 1. Mild mucosal thickening and inflammatory change throughout descending colon, sigmoid and rectal vault compatible with history of ulcerative colitis with mild surrounding stranding of mesentery indicating active inflammatory process. 2. No small bowel distention or air-fluid levels. 3. Mild fecal stasis of right and transverse colon. The above report concurs with the initial report provided by stat read at 11:58 PM .
== END 2017-01-05 00:46 | disposition home or self-care (01) ==
LOC: ED 20:28
DX: R19.7 Diarrhea, unspecified (principal); K92.1 Melena; R50.9 Fever, unspecified; R51 Headache; R11.0 Nausea; R10.84 Generalized abdominal pain; R53.83 Other fatigue
CPT/HCPCS: 74177; 80053; 85025; 96361; 96374; 96375; 99284; J1885; J2405; J7030; J7050; Q9967

== ENCOUNTER 2017-01-05 11:50 | Emergency (ER) | payer BC ==
[~2017-01-05] VITALS: Ht 177.8 cm; Wt 87.4 kg
[~2017-01-05 11:50] MED LIST changes: -ARIP5TAB12 PO; -BISM262O PO; +BUDE9TAB PO; -CIPR-212 PO; -HYDR-3989 PO; +LAMO100T12 PO; -MELO7.5T12 PO; +MESA10005 RECTALLY; -METR500T PO; +ONDA4TAB7 PO; -PANT40TA27 PO; -SERT25TA5 PO; -SUCR1TAB PO
[2017-01-05 11:52] VITALS: TEMP 98.5; Ht 177.8 cm; Wt 87.4 kg
--- OUTSIDE RECORDS SUMMARY | 2017-01-05 11:56 | XMS REPORT ---
Author Author Rashi Harmon [facility] Address [address] [id number] Care Team Providers Care Baccarat Dealer Name Role Phone Rashi Harmon Unavailable [phone] PROBLEMS Type Condition ICD9-CM Code [id number] Code Onset Dates Condition Status SNOMED Code Problem Immunosuppression D89.9 Active 35431405 Problem Clostridium difficile infection B96.89 Active 640118893 Assessment Ulcerative colitis with complication, unspecified location K51.919 December, Active 79858541 Problem Ulcerative colitis with complication, unspecified location K51.919 Active 18087223 Problem Bloody diarrhea R19.7 Active 36996857 ALLERGIES Unknown Allergies SOCIAL HISTORY No smoking Hx information available PLAN OF CARE VITAL SIGNS MEDICATIONS Medication Instructions Dosage Frequency Start Date End Date Duration Status Uceris 9 MG Orally Daily 1 tab 24h December, 30 days Active Remicade 100 MG Active Lamictal Active Canasa 1000 MG Rectal At Bedtime 1 suppository at bedtime Nov, 30 day(s) Active Uceris 9 MG Orally daily 1 tablet 24h December, 30 days Active RESULTS No Results PROCEDURES No Known procedures IMMUNIZATIONS No Known Immunizations
--- OUTSIDE RECORDS SUMMARY | 2017-01-05 11:56 | XMS REPORT | Continuity of Care Document ---
Author Author [facility] Organization [facility] Address Unknown Phone Unavailable Support Name Relationship Address Phone TANA LICEA APRN Caregiver [address] [place] [address] Unavailable SHAI HARVEY MD Caregiver [address] [place] [id number] Unavailable HUNTLEYBARNEYEN Next Of Kin [address] [address] Insurance Providers Guarantor Siddharth Valle Address [address] [address] Email DENIED 01-04-17 Payer [facility] Policy Number [id number] Subscriber's Name Siddharth Valle Relationship 18 Self Group Number [id number] Chief Complaint and Reason for Visit Chief Complaint Abdominal Pain Reason for Visit Fever [id number] Abdominal pain Problems Past Problems Medical Problem Onset Date Abdominal pain Unknown Bloody diarrhea Unknown Colitis Unknown Fever Unknown Inflammatory bowel disease Unknown Medications Current Home Medications Medication Dose Units Route Directions Days Qty Instructions Start Date Acetaminophen (Tylenol) 325 Mg Tablet 325-650 Mg Oral Every 4 Hours as needed for Pain 02/05/16 Budesonide (Uceris) 9 Mg Tabdr...er 1 Tab Oral Daily 30 01/04/17 Hydrocodone/Acetaminophen (Canastota 5-325 Tablet) 5-325 Tablet 1 Tab Oral Every 6 Hours as needed for Pain 12 Tablet 01/05/17 Lamotrigine 100 Mg Tablet 1.5 Tab Oral Daily 45 01/04/17 Mesalamine (Canasa) 1,000 Mg Supp.rect 1 Supp Rectally Daily 30 Ondansetron (Zofran Odt) 4 Mg Tab.rapdis 4 Mg Oral Q8h @ 0100/0900/1700 12 Tablet Orally disintegrating tablet 01/05/17 Past Home Medications Medication Directions Ordered Status Acetaminophen/Hydrocodone Bitart (Canastota 5-325 Tablet) 5-325 Tablet, 1-2 Tab Oral Every 6 Hours as needed for Pain 04/26/16 Discontinued Aripiprazole 5 Mg Tablet, 5 Mg Oral Daily 04/26/16 Discontinued Bismuth Subsalicylate (Kaopectate) 262 Mg/15 Ml Oral.susp, 30 Ml Oral As Needed as needed for Prn Orders 04/26/16 Discontinued Ciprofloxacin Hcl (Cipro) 500 Mg Tablet, 500 Mg Oral Three Times A Day Discontinued Hydrocodone/Acetaminophen (Canastota 5-325 Tablet) 5-325 Tablet, 1-2 Tab Oral Every 6 Hours for Pain 04/19/16 Discontinued Meloxicam (Mobic) 7.5 Mg Tablet, 7.5 Mg Oral Daily 04/19/16 Discontinued Metronidazole (Flagyl) 500 Mg Tablet, 500 Mg Oral Q6h/0300,0900,1500,2100 Discontinued Pantoprazole Sodium 40 Mg Tablet.dr, 40 Mg Oral Before Breakfast 04/26/16 Discontinued Sertraline Hcl (Sertraline) 25 Mg Tablet, 25 Mg Oral Daily 02/05/16 Discontinued Sucralfate 1 Gm Tablet, 1 G Oral Three Times A Day 02/05/16 Discontinued Social History Social History Problem Response Recorded Date/Time Onset Date Status Hx Substance Use N MARIJUANA: QUIT 201201/04/2017 11:13pm Not Applicable Not Applicable Hx Alcohol Use No 01/04/2017 11:13pm Not Applicable Not Applicable Has the pt used tobacco in the last 12 months No 02/06/2016 7:20am Not Applicable Not Applicable Query Response Start Date Stop Date Smoking Status Former smoker Hospital Discharge Instructions No hospital discharge instructions. Plan of Care Discharge Date 01/05/17 12:46am Disposition 01 DISCHARGED HOME, SELF-CARE Condition at Discharge Stable Instructions/Education Provided Abdominal Pain (ED) Prescriptions See Medication Section Referrals TANA LICEA BUSH HOG OPERATOR Address: [address] [place] [address] [phone] Additional Instructions/Education Monitor your fever, pain, and bloody stools at home. Return to Er with persistent fever, severe abdominal pain, or increased bloody stools as we will need to recheck your labs. If you are doing ok tomorrow then I do want you to follow up with your GI specialist or your PCP. Take the Canastota as needed for pain and the Zofran as needed for nausea. Care Plan and Goals Physician Care Plan Problem:Abdominal pain, bloody stool, fever Goal: Follow up with primary care provider [...] Vital Signs Vital Response Date/Time Temperature (Fahrenheit) 100.1 deg F (96.8 - 99.1) 01/05/2017 12:46am Temperature (Calculated Celsius) 37.14562 degrees C (36.0 - 37.3) 01/05/2017 12:46am Pulse Rate (adult) 82 bpm (60 - 100) 01/05/2017 12:46am Respiratory Rate 14 breaths/min (10 - 20) 01/05/2017 12:46am O2 Sat by Pulse Oximetry 94 % (90 - 100) 01/05/2017 12:46am Blood Pressure 106/53 mm Hg 01/05/2017 12:46am Height (Feet) 5 feet 01/04/2017 9:00pm Height (Inches) 10.00 inches 01/04/2017 9:00pm Weight (Kilograms) 87.700 kg 01/04/2017 9:00pm Body Mass Index (BMI) 27.0 01/04/2017 9:00pm Results Laboratory Results Test Name Result Units Flags Reference Collection Date/Time Result Date/ Time Comments White Blood Count 5.4 T/MM3 4.5-11.0 01/04/2017 10:10pm 01/04/2017 10: 49pm Red Blood Count 4.26 M/MM3 L 4.50-5.90 01/04/2017 10:10pm 01/04/2017 10: 49pm Hemoglobin 13.1 GM/DL L 13.5-17.5 01/04/2017 10:10pm 01/04/2017 10:49pm Hematocrit 37.9 % L 41-53 01/04/2017 10:10pm 01/04/2017 10:49pm Mean Corpuscular Volume 89.0 UM3 80-100 01/04/2017 10:1001/04/2017 10:49pm Mean Corpuscular Hemoglobin 30.8 UUG 26-34 01/04/2017 10:102016 10:49pm Mean Corpuscular Hemoglobin Concent 34.6 GM/DL 31-37 01/04/2017 10:1001/04/2017 10:49pm RDW Standard Deviation 38.9 FL 36.9-50.2 01/04/2017 10:1001/04/2017 10:49pm Platelet Count 271 T/MM3 130-400 01/04/2017 10:1001/04/2017 10:49pm Mean Platelet Volume 8.4 UM3 L 9.4-12.4 01/04/2017 10:1001/04/2017 10 :49pm Neutrophils (%) (Auto) 66.0 % 33-66 01/04/2017 10:1001/04/2017 10: 49pm Lymphocytes (%) (Auto) 23.3 % 23-45 01/04/2017 10:1001/04/2017 10: 49pm Monocytes (%) (Auto) 10.1 % H 0-9.0 01/04/2017 10:1001/04/2017 10: 49pm Eosinophils (%) (Auto) 0.2 % 0-4 01/04/2017 10:1001/04/2017 10:49pm Basophils (%) (Auto) 0.2 % 0-2 01/04/2017 10:1001/04/2017 10:49pm Immature Granulocyte % (Auto) 0.2 % 0.0-0.5 01/04/2017 10:102016 10:49pm Absolute Neutrophils (auto) 3.6 T/MM3 1.8-7.7 01/04/2017 10:102016 10:49pm Absolute Lymphocytes (auto) 1.3 T/MM3 1-4.8 01/04/2017 10:102016 10:49pm Absolute Monocytes (auto) 0.6 T/MM3 0-0.8 01/04/2017 10:102016 10:49pm Absolute Eosinophils (auto) 0.0 T/MM3 0-0.5 01/04/2017 10:10pm 2016 10:49pm Absolute Basophils (auto) 0.0 T/MM3 0-0.2 01/04/2017 10:10pm 2016 10:49pm Absolute Immature Granulocyte (auto 0.01 T/MM3 0.00-0.03 01/04/2017 10: 10pm 01/04/2017 10:49pm Icterus Index < 2 0-7 01/04/2017 10:1001/04/2017 10:23pm Chemistry Specimen Hemolysis < 15 0-25 01/04/2017 10:1001/04/2017 10:23pm 0-25: Specimen Exhibited No Hemolysis. Turbidity < 20 0-20 01/04/2017 10:10pm 01/04/2017 10:23pm Sodium Level 142 MEQ/L 134-144 01/04/2017 10:10pm 01/04/2017 10:23pm Potassium Level 3.5 MEQ/L L 3.6-5 01/04/2017 10:1001/04/2017 10:23pm Chloride Level 105 MEQ/L 98-107 01/04/2017 10:10pm 01/04/2017 10:23pm Carbon Dioxide Level 22 MEQ/L 22-30 01/04/2017 10:10pm 01/04/2017 10: 23pm Anion Gap 15 MEQ/L 5-15 01/04/2017 10:10pm 01/04/2017 10:23pm Blood Urea Nitrogen 10.0 MG/DL 9-20 01/04/2017 10:10pm 01/04/2017 10: 23pm Creatinine 0.9 MG/DL 0.8-1.5 01/04/2017 10:1001/04/2017 10:23pm BUN/Creatinine Ratio 11 RATIO 6-26 01/04/2017 10:10pm 01/04/2017 10: 23pm Glomerular Filtration Rate Calc 97 01/04/2017 10:1001/04/2017 10 :23pm Glucose Level 129 MG/DL H 75-110 01/04/2017 10:10pm 01/04/2017 10:23pm Calculated Osmolality 274 MOSM/KG 261-280 01/04/2017 10:102016 10:23pm Calcium Level 9.2 MG/DL 8.4-10.2 01/04/2017 10:10pm 01/04/2017 10:23pm Total Bilirubin 0.70 MG/DL 0.20-1.30 01/04/2017 10:10pm 01/04/2017 10: 23pm Alkaline Phosphatase 61 U/L 38-126 01/04/2017 10:10pm 01/04/2017 10: 23pm Total Protein 7.7 G/DL 6.3-8.2 01/04/2017 10:10pm 01/04/2017 10:23pm Albumin 4.1 G/DL 3.5-5.0 01/04/2017 10:10pm 01/04/2017 10:23pm Globulin 3.6 G/DL 2.4-3.6 01/04/2017 10:10pm 01/04/2017 10:23pm Albumin/Globulin Ratio 1.1 RATIO 1.1-2.2 01/04/2017 10:10pm 01/04/2017 10:23pm Aspartate Amino Transf (AST/SGOT) 28 U/L 17-59 01/04/2017 10:10pm 01/04 10:23pm Alanine Aminotransferase (ALT/SGPT) 38 U/L 21-72 01/04/2017 10:10pm 04/2017 10:23pm Procedures No known history of procedures. Encounters Encounter Location Arrival/Admit Date Discharge/Depart Date Attending Provider Departed Emergency Room [facility] 01/04/17 8:28pm 01/05/17 12: 46am SHAI HARVEY MD Recent Diagnosis
--- OUTSIDE RECORDS SUMMARY | 2017-01-05 11:57 | XMS REPORT ---
Author Author JazzRashi marquez [facility] Address [address] [id number] Care Team Providers Care Day Camp Unit Leader Name Role Phone Rashi Harmon Unavailable [phone] PROBLEMS Type Condition ICD9-CM Code TIP40-FZ Code Onset Dates Condition Status SNOMED Code Problem Immunosuppression D89.9 Active 78441671 Problem Clostridium difficile infection B96.89 Active 587260319 Problem Ulcerative colitis with complication, unspecified location K51.919 Active 44651056 Problem Bloody diarrhea R19.7 Active 17228381 ALLERGIES Unknown Allergies SOCIAL HISTORY No smoking Hx information available PLAN OF CARE VITAL SIGNS MEDICATIONS Medication Instructions Dosage Frequency Start Date End Date Duration Status Canasa 1000 MG Rectal At Bedtime 1 suppository at bedtime Nov, 30 day(s) Active Uceris 9 MG Orally daily 1 tablet 24h December, 30 days Active Remicade 100 MG Active Lamictal Active RESULTS No Results PROCEDURES No Known procedures IMMUNIZATIONS No Known Immunizations
--- NOTE | 2017-01-05 12:16 | ERPDOC ---
Departure Disposition Decision Date: January 05, 2017 Disposition Decision Time: 12:56 (RAYMUNDO FRANKLIN APRN) Disposition: 01 DISCHARGED HOME, SELF-CARE Impression Impression (RAYMUNDO FRANKLIN APRN) Impression: Primary Impression: RUQ abdominal pain Additional Impressions: Hx of ulcerative colitis Headache Headache type: unspecified Headache chronicity pattern: acute headache Intractability: not intractable Qualified Codes: R51 - Headache Bloody diarrhea Severity: Moderate (RAYMUNDO FRANKLIN APRN) Condition: Stable Seen By: Mid-level only (RAYMUNDO FRANKLIN APRN) Referrals: TANA LICEA APRN (Family) Patient Instructions: Abdominal Pain (ED), Ulcerative Colitis (ED) Problems/Meds/Labs Reviewed?: Yes Medications reviewed and manag: Yes (RAYMUNDO FRANKLIN APRN) Additional Instructions: Continue to take the already prescribed [place] for pain and Zofran for nausea/ vomiting. Follow with your jewelsmith or PCP in next 24 hours for re-evaluation. You may return to the ED (see discharge packet) as discussed. Follow treatment plan. Follow up care ordered?: Yes Mental Status: Alert, Oriented (RAYMUNDO FRANKLIN APRN) HPI - Abdominal Pain General Chief Complaint: Abdominal Pain Stated Complaint: N/V, HEADACHE Time Seen by Provider: 12:14 Source: patient (RAYMUNDO FRANKLIN APRN) Time Seen by Provider: 12:14 (PAPA INMAN DO) HPI - Abdominal Pain Initial Comments 31-year-old male presents to ER with right upper quadrant pain and diarrhea. Patient has ulcerative colitis and was worked up in our ER yesterday for bloody diarrhea stools,nausea and HURST. Patient says he went home after being dismissed yesterday and slept until morning ("medications given in ED knocked me out"). Today he has had 6 diarrhea stools. Says he only has pink in stools today no helio blood. I asked patient if he called his jewelsmith today and he said no. States that he feels like his jewelsmith is "incompetent"and is not helping him. Patient states he needs a 2nd opinion. Patient states he returned to ER today because of the continued diarrhea and he has a headache ( which is same HURST as yesterday). Reports that he now has pain in right upper quadrant which he did not have yesterday. Patient states he has not eaten since yesterday. Pain Scale: Now: 8/10 (RUQ) Location: RUQ Radiation: no radiation Associated Symptoms: fatigue, headache, DENIES: back pain, chest pain, diaphoresis, fever/chills, shortness of breath, swelling/mass in abdomen, weakness (RAYMUNDO FRANKLIN BARREL LOADER) Allergies: Coded Allergies: No Known Allergies (Unverified , 01/05/17) Past History Past Medical History Metabolic: DENIES: diabetes Cardiac: DENIES: angina Respiratory: DENIES: asthma GI: GERD, IBS, ulcerative colitis Neurological: DENIES: seizures Musculoskeletal: DENIES: rheumatoid arthritis Psychological: bipolar (RAYMUNDO FRANKLIN APRN) Surgical History General: colonoscopy (RAYMUNDO FRANKLIN APRN) Family History Family PMH: FOUND: other (noncontributory) (RAYMUNDO FRANKLIN APRN) Vaccines Hx Influenza Vaccination: Yes (may 2015) Hx Pneumococcal Vaccination: No Hx Tetanus, Diptheria, Pertuss: Yes (2008) (RAYMUNDO FRANKLIN APRN) Social History Does patient use chewing tobac: No Substance Use Type: does not use Alcohol Intake: none (RAYMUNDO FRANKLIN BARREL LOADER) Review of Systems Constitutional Constitutional: DENIES: chills (RAYMUNDO FRANKLIN BARREL LOADER) Eyes General: DENIES: erythema, exudate Lids/Accessories: DENIES: erythema, swelling (RAYMUNDO FRANKLIN BARREL LOADER) ENMT Ears: DENIES: pain Sinuses: DENIES: congestion, rhinorrhea Mouth/Throat: DENIES: sore throat (EUNICE FRANKLINS A BARREL LOADER) Cardiovascular Cardiac: DENIES: chest pain, murmur Rhythm/Rate: DENIES: palpitations (EUNICE FRANKLINS A BARREL LOADER) Pulmonary Respiratory: DENIES: cough, dyspnea (EUNICE FRANKLINS A BARREL LOADER) GI Upper Abdomen: nausea, pain, see HPI, DENIES: vomiting Lower Abdomen: diarrhea, DENIES: pain (EUNICE FRANKLINS A BARREL LOADER) General: DENIES: dysuria, pain (EUNICE FRANKLINS A BARREL LOADER) Musculoskeletal General: DENIES: joint pain, pain, tenderness (EUNICE FRANKLINS A BARREL LOADER) Integumentary Skin: DENIES: color change, itching, rash (EUNICE FRANKLINS A BARREL LOADER) Neurological General: headache, DENIES: ataxia, change in strength, numbness, paralysis/ paresis, weakness (EUNICE FRANKLINS A BARREL LOADER) Psychiatric Psychiatric: DENIES: anxiety, depression, nervousness (EUNICE FRANKLINS A BARREL LOADER) Physical Exam General General Nourishment: well nourished, well developed, no acute distress, adult General Body Habitus: well groomed (EUNICE FRANKLINS A BARREL LOADER) Vitals and Pain First Documented Vital Signs Date Time Temp Pulse Resp B/P Pulse Ox O2 Delivery O2 Flow Rate FiO2 01/05/17 11:52 98.5 84 16 111/63 98 Room Air (PAPA INMAN DO) Vitals and Pain Weight: Kilograms: 87.400 Height (feet): 5 Height (inches): 10.00 Triage Pain Scale: (EUNICE FRANKLINS A BARREL LOADER) Eyes (brief) Eyes Brief: found: EOMI, PERRL (EUNICE FRANKLINS A BARREL LOADER) ENMT (brief) ENMT Brief: NOT FOUND: nasal exudate, nasal swelling (follow) (EUNICE FRANKLINS A BARREL LOADER) Neck (brief) Neck: FOUND: trachea midline (EUNICE FRANKLINS A BARREL LOADER) Respiratory (brief) Respiratory: FOUND: clear all manzo, equal bilaterally, symmetrical (EUNICE FRANKLINS A BARREL LOADER) Cardiovascular (brief) Cardiac: FOUND: regular rate, regular rhythm Capillary Refill: <2 sec Pulses: all distal extremities, equal, strong (FRANKLINEUNICES A BARREL LOADER) Abdomen (brief) Abdominal Brief: FOUND: bowel normo active x4, soft, NOT FOUND: distended, tender (EUNICE FRANKLINS A BARREL LOADER) Abdomen Inspection: NOT FOUND: distention Palpation: FOUND: soft, tender (RUQ), NOT FOUND: hepatomegaly (O), involuntary guarding, rebound, splenomegaly, voluntary guarding (RU) Auscultation: FOUND: hypoactive (x4) (EUNICE FRANKLINS A BARREL LOADER) Musculoskeletal (brief) Musculoskeletal Brief: NOT FOUND: deformity, loss of motion (EUNICE FRANKLINS A BARREL LOADER) Integumentary (brief) Integumentary Brief: FOUND: dry, pink, warm (EUNICE FRANKLINS A BARREL LOADER) Neurologic (brief) Neurological Brief: FOUND: motor-no gross deficits, sensory-no gross deficits ( EUNICE FRANKLINS A BARREL LOADER) Psychiatric (brief) Psychiatric Brief: FOUND: alert, oriented (RAYMUNDO FRANKLIN APRN) Differential Diagnoses Considering: Biliary Colic, Cholecystitis, Diverticulitis, GI Bleed, Ulcerative Colitis Considering: C-Difficule Colitis (gently blow), Viral Syndrome (RAYMUNDO FRANKLIN APRN) Progress Results/Orders Orders Procedure Category Date Status Time Hydromorphone PHA 01/05/17 Complete (Dilaudid) 12:30 Prochlorperazine PHA 01/05/17 Complete (Compazine) 12:30 Normal Saline (Normal PHA 01/05/17 Complete Saline Iv) 12:30 Case Management CONS 01/05/17 Transmitted Consult (PAPA INMAN DO) Medications Current ED Medications Hydromorphone HCl (Dilaudid) 1 mg O ONCE IV ; Start 01/05/17 at 12:30; Stop 06/14 at 13:12; Status DC Prochlorperazine Edisylate 10 mg 10 mg O ONCE IV ; Start 01/05/17 at 12:30; Stop 01/05/17 at 13:12; Status DC Sodium Chloride (Normal Saline IV) 1,000 ml @ 250 mls/hr Q4H ONCE IV ; Start at 12:30; Stop 01/05/17 at 13:12; Status DC (PAPA INMAN DO) Progress Progress Patient labs yesterday with unremarkable with Hgb of 13.1 and potassium of 3.5. CT scan indicated mild mucosal thickening and inflammatory changes throughout descending colon, sigmoid and rectal vault consistent with UC. No small bowel distention or air-fluid level. I discussed repeating CBC and CMP with patient to see if there was a drop in H& H or signs of dehydration. I told patient that burning in RUQ could be from gastric acid since he has not eaten for approx. 24 hours. Patient agreed with obtain labs, pain medication and fluids. When nurse went into start IV an give medications patient asked to speak with Dr. Inman. Patient now is declining labs and medication and would like to go home. (RAYMUNDO FRANKLIN APRN) Progress I personally examined the patient. Patient is refusing labs, but complains of RUQ abdominal "Burning". Patient states his symptoms have improved from yesterday, and although he continues to have blood tinges stools, it;s gone from bright red to pink today. Patient continues to refuse labs and imaging, but the patient refused (PAPA INMAN DO) RAYMUNDO FRANKLIN APRN January 05, 2017 12:16 PAPA INMAN DO January 05, 2017 14:25
--- NOTE | 2017-01-05 12:17 | NUR ---
PROVIDER Mellissa FRANKLIN APRN AT BEDSIDE FOR EXAM.
[2017-01-05] MEDS ORDERED: HYDROMORPHONE 2mg/ml INJECTION IV ONE (12:30)
[2017-01-05] MEDS ORDERED: NORMAL SALINE 1,000 ML IV ONE (12:30)
[2017-01-05] MEDS ORDERED: PROCHLORPERAZINE 10mg/2ml INJECTION IV ONE (12:30)
[2017-01-05 13:07] VITALS: BP 101/65; PULSE 90; RESP 16; O2SAT 95
== END 2017-01-05 13:09 | disposition home or self-care (01) ==
LOC: ED 11:50
DX: R10.11 Right upper quadrant pain (principal); R19.7 Diarrhea, unspecified; R51 Headache; Z87.19 Personal history of other diseases of the digestive system